=== PATIENT | female | born 1940 ===

== ENCOUNTER 2016-10-31 09:35 | Day surgery (SDC) | payer MEDICARE ==
[2016-10-31] MEDS ORDERED: Midazolam 2 MG/2 ML VIAL ONE (10:31)
[2016-10-31] MEDS ORDERED: Propofol 10 mg/ml Inj (20 ML) ONE (10:31)
[2016-10-31] MEDS ORDERED: Lidocaine Hydrochloride 5 ML INJ ONE (10:33)
[2016-10-31] MEDS ORDERED: Iodixanol 320 MG/ML 200 ML BOTTLE IV ONE (10:41)
[2016-10-31] MEDS ORDERED: Iodixanol 320 MG/ML 100 ML BOTTLE IV ONE (10:41)
[2016-10-31] MEDS ORDERED: Sodium Chloride 0.9% 1,000 ML IV SCH (12:00)
[2016-10-31] MEDS ORDERED: Sodium Chloride 0.9% 1,000 ML IV ONE (12:53)
[2016-10-31 17:03] VITALS: BP 152/74; PULSE 69; RESP 18; TEMP 98; O2SAT 96
--- NOTE | 2016-11-01 16:19 | CARDCATH ---
DATE OF PROCEDURE: 10/31/2016 PROCEDURES: 1. Abdominal aortography. 2. Bilateral lower extremity arterial angiography. CLINICAL INDICATIONS: 1. Intermittent claudication, right more than left. 2. Peripheral arterial disease. 3. Coronary artery disease with history of CABG. 4. Hypertension. 5. Hyperlipidemia. 6. Diabetes. REFERRING PHYSICIAN: Dr. Mccabe. PERFORMING PHYSICIAN: Dr. Gagan Sow. DESCRIPTION OF PROCEDURE: After informed consent, the patient was prepped and draped in the usual sterile fashion. About 2% lidocaine was given in the right groin for local anesthesia. Using micropuncture technique, a 5-inch sheath was introduced into the left femoral artery. Using the usual diagnostic catheter, abdominal aortography and bilateral lower extremity arteriography were performed. The patient tolerated the procedure well. FINDINGS: 1. Abdominal aorta and bilateral renal arteries are patent. 2. Right common iliac artery has a subtotal occlusion. This is calcific disease. Right common femoral artery has mild disease. Right superficial femoral artery is patent. Right popliteal artery and right [id number] arteries are patent. 3. Left common iliac artery has a 60%-70% calcific proximal stenosis. Left external iliac history has a 50% focal lesion. Left common femoral artery has moderate atherosclerotic disease. Left superficial femoral artery is patent. Left popliteal artery has 50%-60% calcific disease. Left [id number] arteries are patent. IMPRESSION: Severe calcific iliac artery disease as discussed above. 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 Gagan Sow MD
== END 2016-10-31 17:00 | disposition home or self-care (01) ==
LOC: C.CATHLAB 09:35
PROVIDERS: ATTEND Internal Medicine Cardiovascular Disease
DX: I70.211 Atherosclerosis of native arteries of extremities with intermittent claudication, right leg (principal); I73.9 Peripheral vascular disease, unspecified; I25.10 Atherosclerotic heart disease of native coronary artery without angina pectoris; E11.9 Type 2 diabetes mellitus without complications; Z95.1 Presence of aortocoronary bypass graft; I10 Essential (primary) hypertension; E78.5 Hyperlipidemia, unspecified
CPT/HCPCS: 36200; 75625; 75716; 82948; 94770; C1766; C1769; J1644; J2250; J3010; J7040; Q9966; Q9967

== ENCOUNTER 2016-11-20 16:53 | Inpatient (IN) | payer MEDICARE ==
[2016-11-20 16:54] VITALS: BMI 35.3
--- NOTE | 2016-11-20 17:35 | C.PDOC ---
History Of Present Illness Patient is a 76 year old female, whose past medical history includes diabetes, hypertension, peripheral artery disease, CABG 3 years ago, presents to the Emergency Department for evaluation of bilateral leg pain. Patient describes the pain as burning sensation, states it feels like "fire inside". Notes that she is having difficulty moving her legs, and is unable to ambulate. Notes that right leg pain is worse then her left. Patient is sent from the PMD office, Dr. Vivas, and will have bilateral iliac stents placement procedure for blocked arteries in b/l lower extremities. Patient also complaints of diffuse abdominal pain consistent with hernia. Otherwise, denies any chest pain, shortness of breath, headache, fever, chills, cough, nausea, vomiting, diarrhea, changes in bowel habits, dysuria, hematuria, frequency, flank pain, sensory changes, or any other associated symptoms at this time. PMD: Dr. Sangeetha Muhammad Block And Case Maker: Dr. Sow Time Seen by Provider: 11/20/16 17:18 Chief Complaint (Nursing): Lower Extremity Problem/Injury History Per: Patient History/Exam Limitations: no limitations Onset/Duration Of Symptoms: Days Current Symptoms Are (Timing): Still Present Severity: Severe Recent travel outside of the [place]: No Additional History Per: Family Past Medical History Reviewed: Historical Data, Nursing Documentation, Vital Signs Vital Signs: Last Vital Signs Temp 97.5 F L 11/27/16 08:00 Pulse 104 H 11/27/16 08:00 Resp 20 11/27/16 08:00 BP 138/74 11/27/16 08:00 Pulse Ox 95 11/27/16 08:00 - Medical History PMH: Gastritis, HTN, Hypercholesterolemia Surgical History: CABG (2013) - [facility] Procedures DILATION OF L COM ILIAC ART WITH INTRALUM DEV, OPEN APPROACH (11/20/16) DILATION OF L EXT ILIAC ART WITH INTRALUM DEV, OPEN APPROACH (11/20/16) DILATION OF R COM ILIAC ART WITH INTRALUM DEV, OPEN APPROACH (11/20/16) EXTIRPATION OF MATTER FROM R FEM ART, OPEN APPROACH (11/20/16) INJECT/INFUSE NEC (07/08/04) REPAIR RIGHT FEMORAL REGION, OPEN APPROACH (11/20/16) SUPPLEMENT R FEM ART WITH SYNTH SUB, OPEN APPROACH (11/20/16) Family History: States: Unknown Family Hx - Social History Hx Alcohol Use: No Hx Substance Use: No Review Of Systems Except As Marked, All Systems Reviewed And Found Negative. Constitutional: Negative for: Fever, Chills Cardiovascular: Negative for: Chest Pain, Palpitations Respiratory: Negative for: Cough, Shortness of Breath Gastrointestinal: Positive for: Abdominal Pain. Negative for: Nausea, Vomiting , Diarrhea, Constipation Genitourinary: Negative for: Dysuria, Frequency, Incontinence, Hematuria, Vaginal Discharge Musculoskeletal: Positive for: Leg Pain (bilateral). Negative for: Neck Pain, Back Pain Skin: Negative for: Rash, Bruising Neurological: Negative for: Weakness, Numbness, Headache, Dizziness Physical Exam - Physical Exam Appears: Non-toxic, No Acute Distress Skin: Normal Color, Warm, Dry Head: Atraumatic, Normacephalic Eye(s): bilateral: Normal Inspection, EOMI Oral Mucosa: Moist Neck: Normal ROM, Supple Chest: Symmetrical, No Deformity, No Tenderness, Other (midsternal chest scar) Cardiovascular: Rhythm Regular, No Murmur Respiratory: Normal Breath Sounds, No Rales, No Rhonchi, No Wheezing Gastrointestinal/Abdominal: Soft, Tenderness (diffuse), No Distention, No Guarding, No Rebound, Hernia Extremity: Normal ROM, Tenderness (bilateral legs R > L), Pedal Edema (+1 pitting edema), Capillary Refill (<2 sec.), No Deformity Extremity: Bilateral: Atraumatic, Normal Color And Temperature, Normal ROM Pulses: Left Dorsalis Pedis: Normal, Right Dorsalis Pedis: Normal Neurological/Psych: Oriented x3, Normal Speech, Normal Motor, Normal Sensation ED Course And Treatment - Laboratory Results Result Diagrams: 11/24/16 08:04 11/25/16 07:04 O2 Sat by Pulse Oximetry: 95 (RA) Pulse Ox Interpretation: Normal Medical Decision Making Medical Decision Making: Impression: 76 y/o female, with history peripheral artery disease presents to the ED for evaluation of bilateral leg pain. Plan: * Blood work * EKG * CXR * Reassess Progress note: Patient is resting comfortably, no signs of acute distress. Disposition Discussed With : Gagan Sow Doctor Will See Patient In The: Hospital - Disposition Disposition: HOSPITALIZED Disposition Time: 17:36 Condition: GUARDED - POA Present On Arrival: None - Clinical Impression Clinical Impression: PAD (peripheral artery disease) - Scribe Statement The provider has reviewed the documentation as recorded by the Miguelina Gramajo All medical record entries made by the Miguelina were at my direction and personally dictated by me. I have reviewed the chart and agree that the record accurately reflects my personal performance of the history, physical exam, medical decision making, and the department course for this patient. I have also personally directed, reviewed, and agree with the discharge instructions and disposition. Decision To Admit - Pt Status Changed To: Hospital Disposition Of: Inpatient - Admit Certification Admit to Inpatient:: After my assessment, the patient will require hospitalization for at least two midnights. This is because of the severity of symptoms shown, intensity of services needed, and/or the medical risk in this patient being treated as an outpatient. - InPatient: Physician Admission Certification: I certify that this patient requires 2 or more midnights of care for the following reason:: patient with pain tp b/l legs , needs proceedure - . Bed Request Type: Regular Patient Diagnosis: PAD (peripheral artery disease)
[2016-11-20 18:01] LABS: BASO # 0.1 K/uL (0.0-0.2); BASO % 1.1 % (0.0-2.0); EOS # 0.2 K/uL (0.0-0.7); EOS % 2.3 % (0.0-4.0); HEMATOCRIT 36.1 % (34.0-47.0); LYMPH # 2.4 K/uL (1.0-4.3); LYMPH % 28.8 % (20.0-40.0); MEAN CELL VOLUME 76.5 fL (81.0-99.0); MEAN CORPUSCULAR HEMOGLOBIN 24.9 pg (27.0-31.0); MEAN CORPUSCULAR HGB CONC 32.6 g/dL (33.0-37.0); MEAN PLATELET VOLUME 7.8 fL (7.2-11.7); MONO # 0.7 K/uL (0.0-0.8); MONO % 8.4 % (0.0-10.0); NRBC % 0.1 % (0.0-2.0); RED CELL DISTRIBUTION WIDTH 21.6 % (11.5-14.5); WHITE BLOOD COUNT 8.3 K/uL (4.8-10.8)
[2016-11-20 18:10] LABS: INR 1.1
[2016-11-20 18:29] LABS: CHLORIDE 102 mmol/L (98-107); POTASSIUM 4.1 mmol/L (3.6-5.2); SODIUM 143 mmol/L (132-148)
[2016-11-20 18:31] LABS: GFR AFRICAN-AMERICAN > 60
[2016-11-20 18:32] LABS: ALB/GLOB RATIO 1.1 (1.0-2.1); ALKALINE PHOSPHATASE 114 U/L (38-126); ALT/SGPT 36 U/L (9-52); AST/SGOT 24 U/L (14-36); BILIRUBIN,TOTAL 0.4 mg/dL (0.2-1.3); BLOOD UREA NITROGEN 13 mg/dL (7-17); CARBON DIOXIDE 26 mmol/L (22-30); GLUCOSE,RANDOM 171 mg/dL (65-105); TOTAL PROTEIN 7.3 g/dL (6.3-8.3)
--- NOTE | 2016-11-20 18:35 | RAD ---
HISTORY: SOB COMPARISON: Chest x-ray performed 03/27/13 TECHNIQUE: Chest, one view. FINDINGS: Examination limited by habitus. LUNGS: No focal consolidation. Please note that chest x-ray has limited sensitivity for the detection of pulmonary masses. PLEURA: No significant pleural effusion identified. No definite pneumothorax . CARDIOVASCULAR: Median sternotomy wires with evidence of CABG. Heart size appears top normal. Dense atherosclerotic calcifications the aortic knob. OSSEOUS STRUCTURES: Osseous demineralization. Degenerative changes of the spine and shoulders. VISUALIZED UPPER ABDOMEN: Unremarkable. OTHER FINDINGS: None. IMPRESSION: Median sternotomy wires with evidence of CABG. Dense atherosclerotic calcifications of the aortic knob.
--- NOTE | 2016-11-20 21:16 | CP.PCM.CON ---
History of Present Illness - History of Present Illness History of Present Illness: CC: Pre Op cardiac risk assessment HPI: 76 F with Hx of CAD s/p CABG x 3 (2013), HTN, DM 2, Hyperlipidemia, Hx of Ex tobacco use, PAD consulted for pre Operative Cardiac risk assessment for CAN SOLDERER endarterectomy and b/l Iliac stentnig unedr general anaesthesia. Patient had a recent ECHO in my office (Normal EF). Patient deneis Chest pain, dyspnea or palpitations Review of Systems - Cardiovascular Cardiovascular: absent: Chest Pain, Dyspnea - Respiratory Respiratory: absent: Dyspnea - Gastrointestinal Gastrointestinal: absent: Abdominal Pain Past Patient History - Past Medical History & Family History Past Medical History?: Yes - Past Social History Smoking Status: Former Smoker Alcohol: None Drugs: Denies Home Situation {Lives}: With Family - CARDIAC Hx Cardiac Disorders: Yes (CAD s/p CABG x 3 (2013)) Hx Hypercholesterolemia: Yes Hx Hypertension: Yes Hx Peripheral Vascular Disease: Yes - NEUROLOGICAL Hx Neurological Disorder: No - ENDOCRINE/METABOLIC Hx Endocrine Disorders: Yes Hx Diabetes Mellitus Type 2: Yes - MUSCULOSKELETAL/RHEUMATOLOGICAL Hx Musculoskeletal Disorders: Yes Hx Unsteady Gait: Yes (USES CANE) - GASTROINTESTINAL Hx Gastritis: Yes - PSYCHIATRIC Hx Substance Use: No - SURGICAL HISTORY Hx Coronary Artery Bypass Graft: Yes (2013) - ANESTHESIA Hx Anesthesia: Yes Meds Allergies/Adverse Reactions: Allergies Allergy/AdvReac Type Severity Reaction Status Date / Time Penicillins Allergy Unknown UNKNOWN Verified 11/20/16 17:06 - Medications Medications: Current Medications Aspirin (Ecotrin) 81 mg PO DAILY [facility] Cilostazol (Pletal) 50 mg PO DAILY [facility] Heparin Sodium (Porcine) (Heparin) 5,000 units SC Q8 [facility] Hydrochlorothiazide (Hydrodiuril) 25 mg PO DAILY [facility] Losartan Potassium (Cozaar) 100 mg PO DAILY [facility] Metoprolol Succinate (Toprol Xl) 25 mg PO DAILY [facility] Pantoprazole Sodium (Protonix Ec Tab) 40 mg PO DAILY [facility] Pregabalin (Lyrica) 25 mg PO BID [facility] Physical Exam - Constitutional Appears: Well - Head Exam Head Exam: ATRAUMATIC - Eye Exam Eye Exam: EOMI, Normal appearance, PERRL - ENT Exam ENT Exam: Mucous Membranes Moist, Normal Exam - Respiratory Exam Respiratory Exam: NORMAL BREATHING PATTERN - Cardiovascular Exam Cardiovascular Exam: REGULAR RHYTHM, +S1, +S2 - GI/Abdominal Exam GI & Abdominal Exam: Normal Bowel Sounds, Soft - Extremities Exam Extremities exam: Positive for: calf tenderness - Neurological Exam Neurological exam: Alert, CN II-XII Intact, Reflexes Normal - Psychiatric Exam Psychiatric exam: Normal Mood Results - Vital Signs Recent Vital Signs: Last Vital Signs Temp 98.2 F 11/20/16 17:08 Pulse 81 11/20/16 17:08 Resp 16 11/20/16 17:08 BP 218/72 H 11/20/16 17:08 Pulse Ox 95 11/20/16 18:31 - Labs Result Diagrams: 11/20/16 17:55 11/20/16 17:55 Labs: Laboratory Results - last 24 hr 11/20/16 11/20/16 11/20/16 17:55 17:55 17:55 WBC 8.3 RBC 4.71 Hgb 11.7 Hct 36.1 MCV 76.5 L D MCH 24.9 L MCHC 32.6 L RDW 21.6 H Plt Count 323 MPV 7.8 Neut % (Auto) 59.4 Lymph % (Auto) 28.8 [place] % (Auto) 8.4 Eos % (Auto) 2.3 Baso % (Auto) 1.1 Neut # 4.9 Lymph # 2.4 [place] # 0.7 Eos # 0.2 Baso # 0.1 PT 12.3 H INR 1.1 APTT 38 H Sodium 143 Potassium 4.1 Chloride 102 Carbon Dioxide 26 Anion Gap 18 BUN 13 Creatinine 0.7 Est GFR ( Amer) > 60 Est GFR (Non-Af Amer) > 60 Random Glucose 171 H Calcium 9.0 Total Bilirubin 0.4 AST 24 ALT 36 Alkaline Phosphatase 114 Total Protein 7.3 Albumin 3.8 Globulin 3.4 Albumin/Globulin Ratio 1.1 Blood Type Blood Type Confirm Antibody Screen 11/20/16 19:06 WBC RBC Hgb Hct MCV MCH MCHC RDW Plt Count MPV Neut % (Auto) Lymph % (Auto) [place] % (Auto) Eos % (Auto) Baso % (Auto) Neut # Lymph # [place] # Eos # Baso # PT INR APTT Sodium Potassium Chloride Carbon Dioxide Anion Gap BUN Creatinine Est GFR ( Amer) Est GFR (Non-Af Amer) Random Glucose Calcium Total Bilirubin AST ALT Alkaline Phosphatase Total Protein Albumin Globulin Albumin/Globulin Ratio Blood Type A POSITIVE Blood Type Confirm A POSITIVE Antibody Screen Negative Assessment & Plan - Assessment and Plan (Free Text) Assessment: 76 F with Hx of CABG x 3 (2013), Normal EF with no recent cardiac events assessed as moderate risk for cardiac events for CAN SOLDERER endarterctomy and b/l Iliac stenting Since benefit out weighs the risk recommend to proceed with the needed procedure. D/W Patient and her daughter at bedside who agreed to undergo the surgery Thank you
--- NOTE | 2016-11-21 06:44 | CP.PCM.CON ---
History of Present Illness - History of Present Illness History of Present Illness: Surgery: Dr. Taylor CC: B/L LE pain HPI: 76F w. pmh of HTN, DM 2, Hyperlipidemia, and PVD was sent to ED by PMD for B/L LE pain. Pt states that the pain has been present for about a yr in both legs R>L. The pain is mostly in the thighs. Pain is described as burning. It is intermittent but exacerbated w. walking. She states that the pain does not wake her from her sleep. Prior imaging shows stenosis of B/L iliac arteries and R BETA TESTER. Currently pt denies FATIMA/blurred vision, no CP/paplitations, no SOB/cough, no N/V/D, no F/C, no weakness/fatigue. PMH: see above PSH: CABG Meds: MAR reviewed ALL: PCN SOcial: No tobacco/ETOH/drugs Fhx: non-contributory Review of Systems - Review of Systems All systems: reviewed and no additional remarkable complaints except (HPI) Past Patient History - Past Medical History & Family History Past Medical History?: Yes - Past Social History Smoking Status: Never Smoked - CARDIAC Hx Cardiac Disorders: Yes (CAD s/p CABG x 3 (2013)) Hx Angina: No Hx Atrial Fibrillation: No Hx Cardia Arrhythmia: No Hx Circulatory Problems: No Hx Congestive Heart Failure: No Hx Heart Attack: No Hx Heart Murmur: No Hx Heart Transplant: No Hx Hypercholesterolemia: Yes Hx Hypertension: Yes Hx Hypotension: No Hx Internal Defibrillator: No Hx Mitral Valve Prolapse: No Hx Pacemaker: No Hx Peripheral Edema: No Hx Peripheral Vascular Disease: Yes - PULMONARY Hx Respiratory Disorders: No - NEUROLOGICAL Hx Neurological Disorder: No - HEENT Hx HEENT Problems: No - RENAL Hx Chronic Kidney Disease: No - ENDOCRINE/METABOLIC Hx Endocrine Disorders: Yes Hx Adrenal Cancer: No Hx Diabetes Insipidus: No Hx Diabetes Mellitus Type 1: No Hx Diabetes Mellitus Type 2: Yes Hx Hyperthyroidism: No Hx Hypothyroidism: No Hx Systemic Lupus Erythematosus: No - HEMATOLOGICAL/ONCOLOGICAL Hx Blood Disorders: No - INTEGUMENTARY Hx Dermatological Problems: No - MUSCULOSKELETAL/RHEUMATOLOGICAL Hx Falls: No - GASTROINTESTINAL Hx Gastrointestinal Disorders: Yes Hx Bowel Surgery: No Hx Clostridium Difficile: No Hx Colitis: No Hx Colostomy: No Hx Constipation: No Hx Crohn's Disease: No Hx Diarrhea: No Hx Diverticulitis: No Hx Esophageal Varices: No Hx Fatty Liver Disease: No Hx Gall Bladder Disease: No Hx Gastritis: Yes Hx Gastroesophageal Reflux: No Hx Hemorrhoids: No Hx Ileostomy: No Hx Irritable Bowel: No Hx Liver Failure: No Hx Nausea: No Hx Pancreatitis: No HX Swallowing Problems: No Hx Ulcer: No Hx Vomiting: No - GENITOURINARY/GYNECOLOGICAL Hx Genitourinary Disorders: No - PSYCHIATRIC Hx Substance Use: No - SURGICAL HISTORY Hx Surgeries: Yes Hx Abdominal Aortic Aneurysm Repair: No Hx Amputation: No Hx Angiogram: No Hx Angioplasty: No Hx Appendectomy: No Hx Arteriovenous Shunt: No Hx Arthroscopy: No Hx Bile Duct Stent: No Hx Breast Biopsy: No Hx Cataract Extraction: No Hx Cardiac Catheterization: No Hx Carotid Endarterectomy: No Hx Section: No Hx Cholecystectomy: No Hx Coronary Artery Bypass Graft: Yes (2013) Hx Coronary Stent: No Hx Dilation and Curettage: No Hx Eye Surgery: No Hx Femoral-Popliteal Bypass Graft: No Hx Gastric Bypass Surgery: No Hx Herniorrhaphy: No Hx Hysterectomy: No Hx Joint Replacement: No Hx Kidney Transplant: No Hx Liver Transplant: No Hx Mastectomy: No Hx Musculoskeletal Surgery: No Hx Open Heart Surgery: No Hx Open Reduction Internal Fixation: No Hx Orthopedic Surgery: No Hx Parathyroidectomy: No Hx Penile Implant: No Hx Pulmonary Surgery: No Hx Splenectomy: No Hx Thyroidectomy: No Hx Tonsillectomy: No Hx Tubal Ligation: No Hx Valve Replacement: No Hx Vascular Surgery: No Hx Vascular Access Device: No - ANESTHESIA Hx Anesthesia: Yes Hx Anesthesia Reactions: No Hx Malignant Hyperthermia: No Has any member of the family had a problem w/ anesthesia?: No Meds Allergies/Adverse Reactions: Allergies Allergy/AdvReac Type Severity Reaction Status Date / Time Penicillins Allergy Unknown UNKNOWN Verified 11/20/16 17:06 - Medications Medications: Current Medications Aspirin (Ecotrin) 81 mg PO DAILY [facility] Cilostazol (Pletal) 50 mg PO DAILY [facility] Heparin Sodium (Porcine) (Heparin) 5,000 units SC Q8 [facility] Last Admin: 11/21/16 05:28 Dose: Not Given Hydrochlorothiazide (Hydrodiuril) 25 mg PO DAILY [facility] Losartan Potassium (Cozaar) 100 mg PO DAILY [facility] Metoprolol Succinate (Toprol Xl) 25 mg PO DAILY [facility] Pantoprazole Sodium (Protonix Ec Tab) 40 mg PO DAILY [facility] Pregabalin (Lyrica) 25 mg PO BID [facility] Physical Exam - Constitutional Appears: Non-toxic, No Acute Distress - Head Exam Head Exam: ATRAUMATIC, NORMOCEPHALIC - Eye Exam Eye Exam: EOMI. absent: Scleral icterus Pupil Exam: PERRL - ENT Exam ENT Exam: Mucous Membranes Moist, Normal External Ear Exam - Neck Exam Neck exam: Positive for: Full Rom - Respiratory Exam Respiratory Exam: NORMAL BREATHING PATTERN. absent: Accessory Muscle Use, Respiratory Distress - Cardiovascular Exam Cardiovascular Exam: RRR - GI/Abdominal Exam GI & Abdominal Exam: Soft. absent: Tenderness - Extremities Exam Extremities exam: Negative for: calf tenderness, pedal edema - Back Exam Back exam: absent: CVA tenderness (L), CVA tenderness (R) - Neurological Exam Neurological exam: Alert, Oriented x3 - Psychiatric Exam Psychiatric exam: Normal Affect, Normal Mood - Skin Skin Exam: Normal Color, Warm Results - Vital Signs Recent Vital Signs: Last Vital Signs Temp 98.3 F 11/21/16 00:00 Pulse 74 11/21/16 00:00 Resp 20 11/21/16 03:14 BP 143/55 L 11/21/16 00:00 Pulse Ox 95 11/21/16 00:00 - Labs Result Diagrams: 11/20/16 17:55 11/20/16 17:55 Labs: Laboratory Results - last 24 hr 11/20/16 11/20/16 11/20/16 17:55 17:55 17:55 WBC 8.3 RBC 4.71 Hgb 11.7 Hct 36.1 MCV 76.5 L D MCH 24.9 L MCHC 32.6 L RDW 21.6 H Plt Count 323 MPV 7.8 Neut % (Auto) 59.4 Lymph % (Auto) 28.8 [place] % (Auto) 8.4 Eos % (Auto) 2.3 Baso % (Auto) 1.1 Neut # 4.9 Lymph # 2.4 [place] # 0.7 Eos # 0.2 Baso # 0.1 PT 12.3 H INR 1.1 APTT 38 H Sodium 143 Potassium 4.1 Chloride 102 Carbon Dioxide 26 Anion Gap 18 BUN 13 Creatinine 0.7 Est GFR ( Amer) > 60 Est GFR (Non-Af Amer) > 60 Random Glucose 171 H Calcium 9.0 Total Bilirubin 0.4 AST 24 ALT 36 Alkaline Phosphatase 114 Total Protein 7.3 Albumin 3.8 Globulin 3.4 Albumin/Globulin Ratio 1.1 Blood Type Blood Type Confirm Antibody Screen 11/20/16 19:06 WBC RBC Hgb Hct MCV MCH MCHC RDW Plt Count MPV Neut % (Auto) Lymph % (Auto) [place] % (Auto) Eos % (Auto) Baso % (Auto) Neut # Lymph # [place] # Eos # Baso # PT INR APTT Sodium Potassium Chloride Carbon Dioxide Anion Gap BUN Creatinine Est GFR ( Amer) Est GFR (Non-Af Amer) Random Glucose Calcium Total Bilirubin AST ALT Alkaline Phosphatase Total Protein Albumin Globulin Albumin/Globulin Ratio Blood Type A POSITIVE Blood Type Confirm A POSITIVE Antibody Screen Negative Assessment & Plan - Assessment and Plan (Free Text) Assessment: 76F w. B/L iliac stenosis and BETA TESTER stenosis -OR for b/l iliac stents and BETA TESTER endarterectomy -Type and screen, type and cross -NPO -will d/w attending Josie PGY3
--- NOTE | 2016-11-21 08:08 | CARD ---
APPROVED REPORT EKG Measurement Heart [id number] <Conclusion> Normal sinus rhythm Inferior infarct, age undetermined Abnormal ECG
[2016-11-21] MEDS ORDERED: ceFAZolin IV 1 gm in Dextrose 0 GM/0 ML BAG IVPB ONE (09:29)
[2016-11-21] MEDS ORDERED: HEPARIN-NS 5,000 UNITS/500 ML 10,000 UNIT/1,000 ML BAG IV ONE (09:30)
[2016-11-21] MEDS ORDERED: ceFAZolin IV 2 gm in Dextrose 0 GM/0 ML BAG IVPB ONE (09:40)
[2016-11-21] MEDS: Metoprolol Succinate 25 mg XL Tab PO SCH (11:04)
[2016-11-21] MEDS: Pantoprazole 40 mg EC Tab PO SCH (11:04)
[2016-11-21] MEDS: Cilostazol 50 mg Tab UD PO SCH (11:04)
[2016-11-21] MEDS ORDERED: Iodixanol 320 MG/ML 200 ML BOTTLE IV ONE ×3 (11:11→14:44)
[2016-11-21] MEDS ORDERED: Lactated Ringer's 1,000 ML IV ONE ×5 (12:10→19:04)
[2016-11-21] MEDS ORDERED: Vancomycin 1 gm/D5W 200 ml 1 GM/200 ML BAG IVPB ONE (12:12)
[2016-11-21] MEDS ORDERED: Midazolam 2 MG/2 ML VIAL ONE (12:17)
[2016-11-21] MEDS ORDERED: Propofol 10 mg/ml Inj (20 ML) ONE (12:17)
[2016-11-21 15:31] LABS: HEMATOCRIT 31.1 % (34.0-47.0)
[2016-11-21] MEDS ORDERED: Sodium Chloride 0.9% 1,000 ML IV ONE (16:20)
[2016-11-21] MEDS ORDERED: HEPARIN-NS 5,000 UNITS/500 ML 5,000 UNIT/500 ML BAG IV ONE ×2 (16:23→17:13)
[2016-11-21 16:51] LABS: DRAW SITE RRA
[2016-11-21] MEDS ORDERED: HYDROmorphone 0.5 mg/0.5 ml ISec IVP PRN (16:52)
[2016-11-21] MEDS ORDERED: (Novolin R) Insulin Human Regular 100 units/ml vial IV ONE ×2 (17:14→17:30)
[2016-11-21] MEDS ORDERED: Calcium Chloride 1000 mg/10 ml Syringe IV STA (18:05)
[2016-11-21] MEDS ORDERED: Thrombin Topical 20,000 Intl Units Spray Kit TOP ONE (18:15)
[2016-11-21] MEDS ORDERED: Nitroglycerin 2% Ointment Foilpak UD TOP PRN (19:19)
[2016-11-21] MEDS ORDERED: Metoprolol 1 mg/ml Inj IVP ONE (19:28)
--- NOTE | 2016-11-21 19:31 | PCM.SURG1 ---
Surgeon's Initial Post Op Note - Surgeon's Notes Surgeon: Dr. Taylor Expert Witness: Dr. López PGY-4, Dr. Dominguez PGY-2, Kasey Zavala OMS-3 Type of Anesthesia: General Endo Pre-Operative Diagnosis: PAD Operative Findings: see operative report Post-Operative Diagnosis: same Operation Performed: Open exposure right femoral artery. Bilateral common iliac artery stents VBX. Left external iliac stent. Right common femoral endarterectomy w/ patch. primary femoral hernia repair Specimen/Specimens Removed: Proximal right common femoral plaque. Distal right common femoral plaque Estimated Blood Loss: EBL {In ML}: 1,000 Blood Products Given: N/A Drains Used: No Drains Post-Op Condition: Good Date of Surgery/Procedure: 11/21/16 Time of Surgery/Procedure: 12:00
[2016-11-21] MEDS ORDERED: (Novolin R) Insulin Human Regular 100 units/ml vial SC ONE (19:53)
[2016-11-21] MEDS ORDERED: Nitroglycerin 50mg in D5W 50 MG/250 ML BOTTLE IV SCH (20:15)
[2016-11-21] MEDS: Lactated Ringer's 1,000 ML IV SCH (21:18)
[2016-11-21 21:59] LABS: MEAN CELL VOLUME 77.9 fL (81.0-99.0); MEAN CORPUSCULAR HEMOGLOBIN 25.5 pg (27.0-31.0); MEAN CORPUSCULAR HGB CONC 32.7 g/dL (33.0-37.0); RED CELL DISTRIBUTION WIDTH 20.3 % (11.5-14.5)
[2016-11-21 22:01] LABS: WHITE BLOOD COUNT 15.8 K/uL (4.8-10.8)
--- NOTE | 2016-11-21 22:57 | CP.CCUPN ---
CCU Subjective - Physician Review Events Since Last Encounter (Free Text): The Patient was seen and examined at the bedside, Medical records reviewed, and management issues were discussed and formulated. All clinical/lab/hemodynamic/radiographic data were reviewed 76 Y/O former tobacco use F with PMHx of Gastritis, HTN, Hypercholesterolemia and peripheral vascular disease Who presented to the ER with Lower Extremity Problem/Injury Admitted today to ICU following Open exposure right femoral artery, Bilateral common iliac artery stents VBX. Left external iliac stent. Right common femoral endarterectomy. Also underwent primary femoral hernia repair Procedure done under General Anesthesia and was uneventful Estimated Blood Loss: EBL {In ML}: 1,000 Patient was successfully extubated, admitted to ICU hemodynamically stable, denies any chest pain or SOB CCU Objective - Vital Signs / Intake & Output Vital Signs (Last 4 hours): Vital Signs Temp Pulse Resp BP Pulse Ox 11/21/16 22:19 167/66 H 11/21/16 22:00 69 17 100 11/21/16 21:30 69 15 99 11/21/16 21:00 97.7 F 70 18 143/66 95 11/21/16 20:48 69 21 161/64 H 93 L 11/21/16 20:45 97.7 F 70 18 162/62 H 93 L 11/21/16 20:39 75 95 11/21/16 20:30 75 22 160/65 H 94 L 11/21/16 20:15 73 19 160/67 H 95 11/21/16 20:00 72 17 151/70 H 96 11/21/16 19:45 88 26 H 175/76 H 95 11/21/16 19:30 82 26 H 158/72 H 98 11/21/16 19:14 98.2 F 82 11 L 180/80 H 99 Intake and Output (Last 8hrs): Intake & Output 11/21/16 11/21/16 11/21/16 06:59 14:59 22:59 Intake Total 0 922 Output Total 1635 Balance 0 -713 Intake: Intake, IV Amount 272 Right Hand 272 Oral 0 Blood Product 650 Output: Urine 1635 Urethral ([place]) 250 Other: # Voids Urine, Voided 1 1 # Bowel Movements 0 0 - Physical Exam Physical Exam Limitations: Positive for: Clinical Condition Head: Positive for: Atraumatic, Normocephalic. Negative for: Tenderness, Contusion Pupils: Positive for: PERRL Extroacular Muscles: Positive for: EOMI Conjunctiva: Positive for: Normal. Negative for: Injected, Icteric Mouth: Positive for: Moist Mucous Membranes Pharnyx: Positive for: Normal Nose (Internal): Positive for: Normal Inspection Neck: Positive for: Normal Range of Motion, Trachea Midline. Negative for: Meningeal Signs, MIDLINE TENDERNESS, Paraspinal Tenderness, JVD, Lymphadenopathy , Bruit, Other Respiratory/Chest: Positive for: Clear to Auscultation, Good Air Exchange. Negative for: Respiratory Distress, Accessory Muscle Use Cardiovascular: Positive for: Regular Rate and Rhythm, Normal S1, S2. Negative for: Murmurs Abdomen: Negative for: Tenderness, Distention Upper Extremity: Positive for: Normal Inspection. Negative for: Cyanosis, Edema Lower Extremity: Negative for: Edema, CALF TENDERNESS Neurological: Positive for: GCS=15, CN II-XII Intact - Medications Active Medications: Active Medications Generic Name Dose Route Start Last Admin Trade Name Freq PRN Reason Stop Dose Admin Aspirin 81 mg 11/21/16 10:00 11/21/16 11:03 Ecotrin PO 81 mg DAILY KANU Administration Cilostazol 50 mg 11/21/16 10:00 11/21/16 11:04 Pletal PO 50 mg DAILY KANU Administration Hydrochlorothiazide 25 mg 11/21/16 10:00 11/21/16 11:03 Hydrodiuril PO 25 mg DAILY KANU Administration Hydromorphone HCl 0.5 mg 11/21/16 19:16 Dilaudid IVP Q3H PRN Pain, moderate (4-7) Lactated Ringer's 1,000 mls @ 130 mls/hr 11/21/16 19:30 11/21/16 21:18 Lactated Ringer's IV 130 mls/hr .[id number] KANU Administration Nitroglycerin/Dextrose 50 mg in 250 mls @ 4.5 mls/hr 11/21/16 20:15 11/21/16 20:45 Nitroglycerin 50 Mg/250 Ml D5w IV 20 mcg/min .Q24H KANU 6 mls/hr Protocol Administration 15 MCG/MIN Losartan Potassium 100 mg 11/21/16 10:00 11/21/16 11:04 Cozaar PO 100 mg DAILY KANU Administration Metoprolol Succinate 25 mg 11/21/16 10:00 11/21/16 11:04 Toprol Xl PO 25 mg DAILY KANU Administration Ondansetron HCl 4 mg 11/21/16 19:44 11/21/16 19:45 Zofran Inj IVP 4 mg Q6H PRN Administration Nausea/Vomiting Pantoprazole Sodium 40 mg 11/21/16 10:00 11/21/16 11:04 Protonix Ec Tab PO 40 mg DAILY KANU Administration Pregabalin 25 mg 11/21/16 10:00 11/21/16 11:03 Lyrica PO 25 mg BID KANU Administration - Patient Studies Lab Studies: Lab Studies 11/21/16 11/21/16 11/21/16 Range/Units 21:54 21:19 19:47 WBC 15.8 H D (4.8-10.8) K/uL RBC 4.49 (3.80-5.20) Mil/uL Hgb 11.5 D (11.0-16.0) g/dL Hct 35.0 (34.0-47.0) % MCV 77.9 L (81.0-99.0) fL MCH 25.5 L (27.0-31.0) pg MCHC 32.7 L (33.0-37.0) g/dL RDW 20.3 H (11.5-14.5) % Plt Count 217 D (130-400) K/uL MPV 8.0 (7.2-11.7) fL Puncture Site pCO2 (35-45) mm/Hg pO2 (80-100) mm/Hg HCO3 (21-28) mmol/L ABG pH (7.35-7.45) ABG Total CO2 (22-28) mmol/L ABG O2 Saturation (95-98) % ABG Base Excess (-2.0-3.0) mmol/L Jam Test ABG Potassium (3.6-5.2) mmol/L A-a O2 Difference mm/Hg Respiratory Index Sodium (132-148) mmol/l Chloride (98-107) mmol/L Glucose (65-105) mg/dl Lactate (0.7-2.1) mmol/L FiO2 % POC Glucose (mg/dL) 326 H 316 H (65-110) mg/dL Arterial Blood Potassium (3.6-5.2) mmol/L Blood Type Blood Type Confirm Antibody Screen 11/21/16 11/21/16 11/21/16 Range/Units 18:09 16:40 15:26 WBC (4.8-10.8) K/uL RBC (3.80-5.20) Mil/uL Hgb 9.5 L 10.1 L (11.0-16.0) g/dL Hct 29.0 L 31.1 L (34.0-47.0) % MCV (81.0-99.0) fL MCH (27.0-31.0) pg MCHC (33.0-37.0) g/dL RDW (11.5-14.5) % Plt Count (130-400) K/uL MPV (7.2-11.7) fL Puncture Site Rra pCO2 32 L (35-45) mm/Hg pO2 374 H (80-100) mm/Hg HCO3 26.9 (21-28) mmol/L ABG pH 7.50 H (7.35-7.45) ABG Total CO2 26.0 (22-28) mmol/L ABG O2 Saturation 99.0 H (95-98) % ABG Base Excess 2.4 (-2.0-3.0) mmol/L Jam Test Na ABG Potassium 4.0 (3.6-5.2) mmol/L A-a O2 Difference 299.0 mm/Hg Respiratory Index 0.8 Sodium 138.0 (132-148) mmol/l Chloride 112.0 H (98-107) mmol/L Glucose 301 H (65-105) mg/dl Lactate 2.1 (0.7-2.1) mmol/L FiO2 100.0 % POC Glucose (mg/dL) (65-110) mg/dL Arterial Blood Potassium 4.0 (3.6-5.2) mmol/L Blood Type Blood Type Confirm Antibody Screen 11/21/16 11/20/16 Range/Units 11:45 19:06 WBC (4.8-10.8) K/uL RBC (3.80-5.20) Mil/uL Hgb (11.0-16.0) g/dL Hct (34.0-47.0) % MCV (81.0-99.0) fL MCH (27.0-31.0) pg MCHC (33.0-37.0) g/dL RDW (11.5-14.5) % Plt Count (130-400) K/uL MPV (7.2-11.7) fL Puncture Site pCO2 (35-45) mm/Hg pO2 (80-100) mm/Hg HCO3 (21-28) mmol/L ABG pH (7.35-7.45) ABG Total CO2 (22-28) mmol/L ABG O2 Saturation (95-98) % ABG Base Excess (-2.0-3.0) mmol/L Jam Test ABG Potassium (3.6-5.2) mmol/L A-a O2 Difference mm/Hg Respiratory Index Sodium (132-148) mmol/l Chloride (98-107) mmol/L Glucose (65-105) mg/dl Lactate (0.7-2.1) mmol/L FiO2 % POC Glucose (mg/dL) 253 H (65-110) mg/dL Arterial Blood Potassium (3.6-5.2) mmol/L Blood Type A POSITIVE Blood Type Confirm A POSITIVE Antibody Screen Negative Laboratory Results - last 24 hr 11/20/16 11/21/16 11/21/16 19:06 11:45 15:26 WBC RBC Hgb 10.1 L Hct 31.1 L MCV MCH MCHC RDW Plt Count MPV Puncture Site pCO2 pO2 HCO3 ABG pH ABG Total CO2 ABG O2 Saturation ABG Base Excess Jam Test ABG Potassium A-a O2 Difference Respiratory Index Sodium Chloride Glucose Lactate FiO2 POC Glucose (mg/dL) 253 H Arterial Blood Potassium Blood Type A POSITIVE Blood Type Confirm A POSITIVE Antibody Screen Negative 11/21/16 11/21/16 11/21/16 16:40 18:09 19:47 WBC RBC Hgb 9.5 L Hct 29.0 L MCV MCH MCHC RDW Plt Count MPV Puncture Site Rra pCO2 32 L pO2 374 H HCO3 26.9 ABG pH 7.50 H ABG Total CO2 26.0 ABG O2 Saturation 99.0 H ABG Base Excess 2.4 Jam Test Na ABG Potassium 4.0 A-a O2 Difference 299.0 Respiratory Index 0.8 Sodium 138.0 Chloride 112.0 H Glucose 301 H Lactate 2.1 FiO2 100.0 POC Glucose (mg/dL) 316 H Arterial Blood Potassium 4.0 Blood Type Blood Type Confirm Antibody Screen 11/21/16 11/21/16 21:19 21:54 WBC 15.8 H D RBC 4.49 Hgb 11.5 D Hct 35.0 MCV 77.9 L MCH 25.5 L MCHC 32.7 L RDW 20.3 H Plt Count 217 D MPV 8.0 Puncture Site pCO2 pO2 HCO3 ABG pH ABG Total CO2 ABG O2 Saturation ABG Base Excess Jam Test ABG Potassium A-a O2 Difference Respiratory Index Sodium Chloride Glucose Lactate FiO2 POC Glucose (mg/dL) 326 H Arterial Blood Potassium Blood Type Blood Type Confirm Antibody Screen Review of Systems - Cardiovascular Cardiovascular: absent: As Per HPI, Acrocyanosis, Chest Pain, Chest Pain at Rest , Chest Pain with Activity, Claudication, Diaphoresis, Dyspnea, Dyspnea on Exertion, Edema, Irregular Heart Rhythm, Pain Radiating to Arm/Neck/Jaw, Leg Edema, Leg Ulcers, Lightheadedness, Orthopnea, Palpitations, Paroxysmal Nocturnal Dyspnea, Pedal Edema, Radiating Pain, Rapid Heart Rate, Slow Heart Rate, Syncope, Other, UNREMARKABLE - Respiratory Respiratory: absent: As Per HPI, Cough, Dyspnea, Hemoptysis, Dyspnea on Exertion , Wheezing, Snoring, Stridor, Pain on Inspiration, Chest Congestion, Excessive Mucous Production, Change in Mucous Color, Pain with Coughing, Other, UNREMARKABLE Critical Care Progress Note - Nutrition Nutrition: Nutrition Category Date Time Status Consistent Carbohydrate [DIET] Diets 11/21/16 Dinner Active Assessment/Plan (1) Essential (primary) hypertension Current Visit: Yes Status: Acute (2) HLD (hyperlipidemia) Current Visit: Yes Status: Acute (3) Diabetes mellitus Current Visit: Yes Status: Acute (4) PAD (peripheral artery disease) Current Visit: Yes Status: Acute - Assessment and Plan (Free Text) Assessment: Admit to SICU for hemodynamic monitoring, SBP goal 130-140s STAT LABS/LYTES/CBC, EKG Pulse check Q 1H Monitor Respiratory status for Respiratory depression PRN Naloxone for RR<8 IV Hydration Perioperative Antibiotics as per surgery Pain control Clear liquid diet, Advance as tolerate Monitor urine output PRN Ondansetron Wound care Tight glycemic control, RISS with Coverage Incentive spirometry GI/DVT PPX with SCDs, START LMWH IN AM IF NO BLEED
--- NOTE | 2016-11-21 23:31 | CP.PCM.HP ---
History of Present Illness - History of Present Illness History of Present Illness: Chief complaint: Leg pain History present illness: 76-year-old female with history of CAD, status post a coronary artery bypass grafting, hypertension, hyperlipidemia, history of smoking, peripheral vascular disease admitted to the hospital because of the ongoing pain in the legs. Patient also has a significant atherosclerotic disease of the abdominal aorta. Patient was having increasing pain especially on the right leg. No ulcers noted. Patient also has a history of diabetes. Poor appetite noted. She is also complaining of bilateral leg pain, feeling like a burning sensation in the legs. She also having some difficulty in moving her legs. Unable to walk. Right is more than the left. She also has a some frequency of urine, flank pain, occasionally noted. She does not have any chest pain or shortness of breath Past medical history: CAD, CABG 3, hypertension, hyperlipidemia, smoking in the past the PVD Surgical history: CABG 3 in the past. Allergy: Penicillin Personal history: History a smoker in the past, nonalcoholic. Family history noncontributory Review of system: No headache, bilateral leg pain, no chest pain, denies any abdominal symptoms. No urinary symptoms Vital signs reviewed No neck vein distention noted Chest good air entry bilaterally, no wheezing or rales noted CVS regular heart sound, no murmur noted Abdomen soft, nontender. Extremities no pedal edema [employer] alert awake oriented 3, no functional neurological deficit Postoperative day 1 today Patient underwent extensive surgical intervention, appendectomy and also bilateral stent placement in the common femoral artery. Patient tolerated the procedure Labs reviewed EKG normal Assessment and recommendation: 76-year-old female with history of diabetes hypertension CAD, CABG 3, peripheral vascular disease. Now admitted with bilateral peripheral vascular disease involving the iliac artery. Status post a surgical intervention. Postoperatively being managed. Close monitoring. Antiplatelets heparin. We'll follow the patient Present on Admission - Present on Admission Any Indicators Present on Admission: No History of DVT/PE: No History of Uncontrolled Diabetes: No Urinary Catheter: No Decubitus Ulcer Present: No Past Patient History - Past Medical History & Family History Past Medical History?: Yes - Past Social History Smoking Status: Never Smoked - CARDIAC Hx Cardiac Disorders: Yes (CAD s/p CABG x 3 (2013)) Hx Angina: No Hx Atrial Fibrillation: No Hx Cardia Arrhythmia: No Hx Circulatory Problems: No Hx Congestive Heart Failure: No Hx Heart Attack: No Hx Heart Murmur: No Hx Heart Transplant: No Hx Hypercholesterolemia: Yes Hx Hypertension: Yes Hx Hypotension: No Hx Internal Defibrillator: No Hx Mitral Valve Prolapse: No Hx Pacemaker: No Hx Peripheral Edema: No Hx Peripheral Vascular Disease: Yes - PULMONARY Hx Respiratory Disorders: No - NEUROLOGICAL Hx Neurological Disorder: No - HEENT Hx HEENT Problems: No - RENAL Hx Chronic Kidney Disease: No - ENDOCRINE/METABOLIC Hx Endocrine Disorders: Yes Hx Adrenal Cancer: No Hx Diabetes Insipidus: No Hx Diabetes Mellitus Type 1: No Hx Diabetes Mellitus Type 2: Yes Hx Hyperthyroidism: No Hx Hypothyroidism: No Hx Systemic Lupus Erythematosus: No - HEMATOLOGICAL/ONCOLOGICAL Hx Blood Disorders: No - INTEGUMENTARY Hx Dermatological Problems: No - MUSCULOSKELETAL/RHEUMATOLOGICAL Hx Falls: No - GASTROINTESTINAL Hx Gastrointestinal Disorders: Yes Hx Bowel Surgery: No Hx Clostridium Difficile: No Hx Colitis: No Hx Colostomy: No Hx Constipation: No Hx Crohn's Disease: No Hx Diarrhea: No Hx Diverticulitis: No Hx Esophageal Varices: No Hx Fatty Liver Disease: No Hx Gall Bladder Disease: No Hx Gastritis: Yes Hx Gastroesophageal Reflux: No Hx Hemorrhoids: No Hx Ileostomy: No Hx Irritable Bowel: No Hx Liver Failure: No Hx Nausea: No Hx Pancreatitis: No HX Swallowing Problems: No Hx Ulcer: No Hx Vomiting: No - GENITOURINARY/GYNECOLOGICAL Hx Genitourinary Disorders: No - PSYCHIATRIC Hx Substance Use: No - SURGICAL HISTORY Hx Surgeries: Yes Hx Abdominal Aortic Aneurysm Repair: No Hx Amputation: No Hx Angiogram: No Hx Angioplasty: No Hx Appendectomy: No Hx Arteriovenous Shunt: No Hx Arthroscopy: No Hx Bile Duct Stent: No Hx Breast Biopsy: No Hx Cataract Extraction: No Hx Cardiac Catheterization: No Hx Carotid Endarterectomy: No Hx Section: No Hx Cholecystectomy: No Hx Coronary Artery Bypass Graft: Yes (2013) Hx Coronary Stent: No Hx Dilation and Curettage: No Hx Eye Surgery: No Hx Femoral-Popliteal Bypass Graft: No Hx Gastric Bypass Surgery: No Hx Herniorrhaphy: No Hx Hysterectomy: No Hx Joint Replacement: No Hx Kidney Transplant: No Hx Liver Transplant: No Hx Mastectomy: No Hx Musculoskeletal Surgery: No Hx Open Heart Surgery: No Hx Open Reduction Internal Fixation: No Hx Orthopedic Surgery: No Hx Parathyroidectomy: No Hx Penile Implant: No Hx Pulmonary Surgery: No Hx Splenectomy: No Hx Thyroidectomy: No Hx Tonsillectomy: No Hx Tubal Ligation: No Hx Valve Replacement: No Hx Vascular Surgery: No Hx Vascular Access Device: No - ANESTHESIA Hx Anesthesia: Yes Hx Anesthesia Reactions: No Hx Malignant Hyperthermia: No Has any member of the family had a problem w/ anesthesia?: No Meds Allergies/Adverse Reactions: Allergies Allergy/AdvReac Type Severity Reaction Status Date / Time Penicillins Allergy Unknown UNKNOWN Verified 11/20/16 17:06 Results - Vital Signs Recent Vital Signs: Last Vital Signs Temp 97.7 F 11/21/16 21:00 Pulse 71 11/21/16 23:00 Resp 15 11/21/16 23:00 BP 166/63 H 11/21/16 23:00 Pulse Ox 100 11/21/16 23:00 - Labs Result Diagrams: 11/22/16 06:27 11/22/16 06:27 Labs: Laboratory Results - last 24 hr 11/20/16 11/21/16 11/21/16 19:06 11:45 15:26 WBC RBC Hgb 10.1 L Hct 31.1 L MCV MCH MCHC RDW Plt Count MPV Puncture Site pCO2 pO2 HCO3 ABG pH ABG Total CO2 ABG O2 Saturation ABG Base Excess Jam Test ABG Potassium A-a O2 Difference Respiratory Index Sodium Chloride Glucose Lactate FiO2 POC Glucose (mg/dL) 253 H Arterial Blood Potassium Blood Type A POSITIVE Blood Type Confirm A POSITIVE Antibody Screen Negative 11/21/16 11/21/16 11/21/16 16:40 18:09 19:47 WBC RBC Hgb 9.5 L Hct 29.0 L MCV MCH MCHC RDW Plt Count MPV Puncture Site Rra pCO2 32 L pO2 374 H HCO3 26.9 ABG pH 7.50 H ABG Total CO2 26.0 ABG O2 Saturation 99.0 H ABG Base Excess 2.4 Jam Test Na ABG Potassium 4.0 A-a O2 Difference 299.0 Respiratory Index 0.8 Sodium 138.0 Chloride 112.0 H Glucose 301 H Lactate 2.1 FiO2 100.0 POC Glucose (mg/dL) 316 H Arterial Blood Potassium 4.0 Blood Type Blood Type Confirm Antibody Screen 11/21/16 11/21/16 21:19 21:54 WBC 15.8 H D RBC 4.49 Hgb 11.5 D Hct 35.0 MCV 77.9 L MCH 25.5 L MCHC 32.7 L RDW 20.3 H Plt Count 217 D MPV 8.0 Puncture Site pCO2 pO2 HCO3 ABG pH ABG Total CO2 ABG O2 Saturation ABG Base Excess Jam Test ABG Potassium A-a O2 Difference Respiratory Index Sodium Chloride Glucose Lactate FiO2 POC Glucose (mg/dL) 326 H Arterial Blood Potassium Blood Type Blood Type Confirm Antibody Screen
[2016-11-22] MEDS: Lactated Ringer's 1,000 ML IV SCH ×3 (05:20→19:32)
--- NOTE | 2016-11-22 06:16 | OP ---
PROCEDURE DATE: 11/21/2016 PREOPERATIVE DIAGNOSIS: Peripheral vascular disease,bilateral common iliac and right common femoral stenoses. PROCEDURE CARRIED OUT: Aortofemoral angiogram with two punctures, and then the patient had an open exposure of the right common femoral artery and placement of bilateral iliac artery and common iliac artery stents, VBX 7 mm, the right was 79 and the left was 59. Also deployment of a 7 mm Tigris stent in left external iliac artery. A right common femoral endarterectomy with patch angioplasty and repair of a right femoral hernia. SURGEON: Dr. Taylor. ASSISTANTS: Dr. Peng and Dr. Dominguez. ANESTHESIOLOGISTS: Cyn Jara CRNA and Dr. Pathak. FINDINGS: Initially, the angiogram showed that the patient had bilateral patent renal arteries. The patient had atherosclerotic changes throughout the aorta. The both common iliac arteries are stenotic. The right frankly occluded and left over 70% stenosis. In addition, the left external iliac artery had multiple areas of stenosis and the right external iliac artery, proximal common femoral artery had diffuse areas of stenosis near occlusion, a cauliflower coral-type lesion. Initially, we were able to cross the right common iliac lesion with difficulty with an 0.035 Glidewire, where we were unable to advance any wires or sheaths or catheters or balloons over this. We then changed this to an 0.018 system, inflated the right common iliac artery with a small balloon until we had a channel and then we were able to deploy after taking the appropriate precautions and measurements and ballooning, first with 6-mm balloon, we were able to deploy two 7-mm stents in the common iliac arteries. After this has been done, I was satisfied with results. We then deployed a left external iliac artery stent for two 60% stenoses in the external iliac artery. The left common femoral artery did have some atherosclerosis, but basically showed free flow. On the right side, there was a high-grade stenosis of over 80% in the proximal portion of common femoral artery, and in the terminal portion just at the origin of profunda and SFA, there was also a very tight stenosis. After this had been done, we already given heparin prior to deploying any stents. We then deployed Perclose device in the left groin. We then continued the dissection in the right groin and we had already dissected out the right common femoral artery. We then carried out the endarterectomy, and after we had clean endpoints, we placed a patch here which was satisfactory and a good flow into the foot. We then repaired a troublesome right femoral hernia which consistently came into our field and obscured the field, so we had to repair this without mesh at this setting. Blood loss for the procedure was close to 1000 mL. The patient received 2 units of blood during the procedure. So the operation carried out is aortofemoral angiogram with two punctures. Open exposure of right common femoral artery, bilateral common iliac artery VBX stents, left external iliac artery stent, and right common femoral endarterectomy with patch angioplasty and repair of right femoral hernia. Elver Taylor Jr., MD cc: MD Carter Bowser MD
[2016-11-22 06:38] LABS: BASO % 0.3 % (0.0-2.0); HEMATOCRIT 32.3 % (34.0-47.0); LYMPH # 1.1 K/uL (1.0-4.3); LYMPH % 9.3 % (20.0-40.0); MEAN CELL VOLUME 78.3 fL (81.0-99.0); MEAN CORPUSCULAR HEMOGLOBIN 25.2 pg (27.0-31.0); MEAN CORPUSCULAR HGB CONC 32.2 g/dL (33.0-37.0); MEAN PLATELET VOLUME 8.4 fL (7.2-11.7); MONO # 0.8 K/uL (0.0-0.8); MONO % 6.8 % (0.0-10.0); PLATELET COUNT 202 K/uL (130-400); RED CELL DISTRIBUTION WIDTH 20.4 % (11.5-14.5); WHITE BLOOD COUNT 11.4 K/uL (4.8-10.8)
[2016-11-22 06:42] LABS: CHLORIDE 102 mmol/L (98-107)
[2016-11-22 06:43] LABS: POTASSIUM 4.4 mmol/L (3.6-5.2); SODIUM 135 mmol/L (132-148)
[2016-11-22 06:45] LABS: GFR AFRICAN-AMERICAN > 60
[2016-11-22 06:46] LABS: BLOOD UREA NITROGEN 11 mg/dL (7-17); CALCIUM 8.5 mg/dl (8.6-10.4); CARBON DIOXIDE 24 mmol/L (22-30)
[2016-11-22 07:08] LABS: GLUCOSE,RANDOM 320 mg/dL (65-105)
[2016-11-22] MEDS ORDERED: (Novolog) Insulin Aspart, Recombinant 100 u/ml 10 ml vial SC SCH (07:30)
[2016-11-22] MEDS: (Novolin R) Insulin Human Regular 100 units/ml vial ONE ×2 (07:46→07:56)
[2016-11-22 08:42] LABS: NEUTROPHIL 83 % (50-75); TOTAL CELLS COUNTED 100
[2016-11-22] MEDS: Metoprolol Succinate 25 mg XL Tab PO SCH (09:04)
[2016-11-22] MEDS: Pantoprazole 40 mg EC Tab PO SCH (09:04)
[2016-11-22] MEDS: Cilostazol 50 mg Tab UD PO SCH (09:08)
--- NOTE | 2016-11-22 10:33 | CP.CCUPN ---
CCU Objective - Vital Signs / Intake & Output Vital Signs (Last 4 hours): Vital Signs Pulse Resp BP Pulse Ox 11/22/16 09:06 76 24 130/49 L 96 11/22/16 09:00 69 22 98 11/22/16 08:56 81 24 136/47 L 97 11/22/16 08:00 75 20 100 11/22/16 07:56 78 24 128/38 L 100 11/22/16 07:00 79 22 100 11/22/16 06:56 78 20 134/52 L 99 Intake and Output (Last 8hrs): Intake & Output 11/21/16 11/22/16 11/22/16 22:59 06:59 14:59 Intake Total 922 1182 Output Total 1635 650 150 Balance -713 532 -150 Intake: Intake, IV Amount 272 1182 Right Hand 272 1182 Blood Product 650 Output: Urine 1635 650 150 Urethral ([place]) 250 650 150 Other: # Bowel Movements 0 0 - Physical Exam Head: Positive for: Atraumatic, Normocephalic. Negative for: Tenderness, Contusion Pupils: Positive for: PERRL Extroacular Muscles: Positive for: EOMI Conjunctiva: Positive for: Normal. Negative for: Injected, Icteric Mouth: Positive for: Moist Mucous Membranes Pharnyx: Positive for: Normal Nose (Internal): Positive for: Normal Inspection Neck: Positive for: Normal Range of Motion, Trachea Midline. Negative for: Meningeal Signs, MIDLINE TENDERNESS, Paraspinal Tenderness, JVD, Lymphadenopathy , Bruit, Other Respiratory/Chest: Positive for: Clear to Auscultation, Good Air Exchange. Negative for: Respiratory Distress, Accessory Muscle Use Cardiovascular: Positive for: Regular Rate and Rhythm, Normal S1, S2. Negative for: Murmurs Abdomen: Negative for: Tenderness, Distention Upper Extremity: Positive for: Normal Inspection. Negative for: Cyanosis, Edema Lower Extremity: Negative for: Edema, CALF TENDERNESS Neurological: Positive for: GCS=15, CN II-XII Intact - Medications Active Medications: Active Medications Generic Name Dose Route Start Last Admin Trade Name Freq PRN Reason Stop Dose Admin Aspirin 81 mg 11/21/16 10:00 11/22/16 09:04 Ecotrin PO 81 mg DAILY [facility] Administration Cilostazol 50 mg 11/21/16 10:00 08/09/17 09:08 Pletal PO 50 mg DAILY [facility] Administration Hydrochlorothiazide 25 mg 11/21/16 10:00 11/22/16 09:11 Hydrodiuril PO 25 mg DAILY [facility] Administration Hydromorphone HCl 0.5 mg 11/21/16 19:16 Dilaudid IVP Q3H PRN Pain, moderate (4-7) Lactated Ringer's 1,000 mls @ 130 mls/hr 11/21/16 19:30 11/22/16 05:20 Lactated Ringer's IV 130 mls/hr .Q7H42M [facility] Administration Nitroglycerin/Dextrose 50 mg in 250 mls @ 4.5 mls/hr 11/21/16 20:15 11/21/16 20:45 Nitroglycerin 50 Mg/250 Ml D5w IV 20 mcg/min .Q24H [facility]U 6 mls/hr Protocol Administration 15 MCG/MIN Insulin Aspart 0 unit 11/22/16 11:30 Novolog SC ACHS [facility] Protocol Insulin Glargine 10 unit 11/22/16 22:00 Lantus SC HS [facility] Losartan Potassium 100 mg 11/21/16 10:00 11/22/16 09:03 Cozaar PO 100 mg DAILY [facility] Administration Metoprolol Succinate 25 mg 11/21/16 10:00 11/22/16 09:04 Toprol Xl PO 25 mg DAILY [facility] Administration Ondansetron HCl 4 mg 11/21/16 19:44 11/21/16 19:45 Zofran Inj IVP 4 mg Q6H PRN Administration Nausea/Vomiting Pantoprazole Sodium 40 mg 11/21/16 10:00 11/22/16 09:04 Protonix Ec Tab PO 40 mg DAILY [facility] Administration Pregabalin 25 mg 11/21/16 10:00 11/22/16 09:12 Lyrica PO 25 mg BID [facility] Administration - Patient Studies Lab Studies: Lab Studies 11/22/16 11/22/16 11/22/16 Range/Units 07:18 06:27 06:27 WBC 11.4 H (4.8-10.8) K/uL RBC 4.12 (3.80-5.20) Mil/uL Hgb 10.4 L (11.0-16.0) g/dL Hct 32.3 L (34.0-47.0) % MCV 78.3 L (81.0-99.0) fL MCH 25.2 L (27.0-31.0) pg MCHC 32.2 L (33.0-37.0) g/dL RDW 20.4 H (11.5-14.5) % Plt Count 202 (130-400) K/uL MPV 8.4 (7.2-11.7) fL Neut % (Auto) 83.6 H (50.0-75.0) % Lymph % (Auto) 9.3 L (20.0-40.0) % [place] % (Auto) 6.8 (0.0-10.0) % Eos % (Auto) 0.0 (0.0-4.0) % Baso % (Auto) 0.3 (0.0-2.0) % Neut # 9.5 H (1.8-7.0) K/uL Lymph # 1.1 (1.0-4.3) K/uL [place] # 0.8 (0.0-0.8) K/uL Eos # 0.0 (0.0-0.7) K/uL Baso # 0.0 (0.0-0.2) K/uL Neutrophils % (Manual) 83 H (50-75) % Band Neutrophils % 1 (0-2) % Lymphocytes % (Manual) 7 L (20-40) % Monocytes % (Manual) 9 (0-10) % Platelet Estimate Normal (NORMAL) Hypochromasia (manual) Slight Poikilocytosis (manual Slight Anisocytosis (manual) Slight Ovalocytes Slight Serena Cells Slight Puncture Site pCO2 (35-45) mm/Hg pO2 (80-100) mm/Hg HCO3 (21-28) mmol/L ABG pH (7.35-7.45) ABG Total CO2 (22-28) mmol/L ABG O2 Saturation (95-98) % ABG Base Excess (-2.0-3.0) mmol/L Jam Test ABG Potassium (3.6-5.2) mmol/L A-a O2 Difference mm/Hg Respiratory Index Sodium 135 (132-148) mmol/l Chloride 102 (98-107) mmol/L Glucose (65-105) mg/dl Lactate (0.7-2.1) mmol/L FiO2 % Potassium 4.4 (3.6-5.2) mmol/L Carbon Dioxide 24 (22-30) mmol/L Anion Gap 14 (10-20) BUN 11 (7-17) mg/dL Creatinine 0.6 L (0.7-1.2) MG/DL Est GFR ( Amer) > 60 Est GFR (Non-Af Amer) > 60 POC Glucose (mg/dL) 355 H (65-110) mg/dL Random Glucose 320 H (65-105) mg/dL Calcium 8.5 L (8.6-10.4) mg/dl Arterial Blood Potassium (3.6-5.2) mmol/L Blood Type Blood Type Confirm Antibody Screen 11/21/16 11/21/16 11/21/16 Range/Units 21:54 21:19 19:47 WBC 15.8 H D (4.8-10.8) K/uL RBC 4.49 (3.80-5.20) Mil/uL Hgb 11.5 D (11.0-16.0) g/dL Hct 35.0 (34.0-47.0) % MCV 77.9 L (81.0-99.0) fL MCH 25.5 L (27.0-31.0) pg MCHC 32.7 L (33.0-37.0) g/dL RDW 20.3 H (11.5-14.5) % Plt Count 217 D (130-400) K/uL MPV 8.0 (7.2-11.7) fL Neut % (Auto) (50.0-75.0) % Lymph % (Auto) (20.0-40.0) % [place] % (Auto) (0.0-10.0) % Eos % (Auto) (0.0-4.0) % Baso % (Auto) (0.0-2.0) % Neut # (1.8-7.0) K/uL Lymph # (1.0-4.3) K/uL [place] # (0.0-0.8) K/uL Eos # (0.0-0.7) K/uL Baso # (0.0-0.2) K/uL Neutrophils % (Manual) (50-75) % Band Neutrophils % (0-2) % Lymphocytes % (Manual) (20-40) % Monocytes % (Manual) (0-10) % Platelet Estimate (NORMAL) Hypochromasia (manual) Poikilocytosis (manual Anisocytosis (manual) Ovalocytes Avenal Cells Puncture Site pCO2 (35-45) mm/Hg pO2 (80-100) mm/Hg HCO3 (21-28) mmol/L ABG pH (7.35-7.45) ABG Total CO2 (22-28) mmol/L ABG O2 Saturation (95-98) % ABG Base Excess (-2.0-3.0) mmol/L Jam Test ABG Potassium (3.6-5.2) mmol/L A-a O2 Difference mm/Hg Respiratory Index Sodium (132-148) mmol/l Chloride (98-107) mmol/L Glucose (65-105) mg/dl Lactate (0.7-2.1) mmol/L FiO2 % Potassium (3.6-5.2) mmol/L Carbon Dioxide (22-30) mmol/L Anion Gap (10-20) BUN (7-17) mg/dL Creatinine (0.7-1.2) MG/DL Est GFR ( Amer) Est GFR (Non-Af Amer) POC Glucose (mg/dL) 326 H 316 H (65-110) mg/dL Random Glucose (65-105) mg/dL Calcium (8.6-10.4) mg/dl Arterial Blood Potassium (3.6-5.2) mmol/L Blood Type Blood Type Confirm Antibody Screen 11/21/16 11/21/16 11/21/16 Range/Units 18:09 16:40 15:26 WBC (4.8-10.8) K/uL RBC (3.80-5.20) Mil/uL Hgb 9.5 L 10.1 L (11.0-16.0) g/dL Hct 29.0 L 31.1 L (34.0-47.0) % MCV (81.0-99.0) fL MCH (27.0-31.0) pg MCHC (33.0-37.0) g/dL RDW (11.5-14.5) % Plt Count (130-400) K/uL MPV (7.2-11.7) fL Neut % (Auto) (50.0-75.0) % Lymph % (Auto) (20.0-40.0) % [place] % (Auto) (0.0-10.0) % Eos % (Auto) (0.0-4.0) % Baso % (Auto) (0.0-2.0) % Neut # (1.8-7.0) K/uL Lymph # (1.0-4.3) K/uL [place] # (0.0-0.8) K/uL Eos # (0.0-0.7) K/uL Baso # (0.0-0.2) K/uL Neutrophils % (Manual) (50-75) % Band Neutrophils % (0-2) % Lymphocytes % (Manual) (20-40) % Monocytes % (Manual) (0-10) % Platelet Estimate (NORMAL) Hypochromasia (manual) Poikilocytosis (manual Anisocytosis (manual) Ovalocytes Serena Cells Puncture Site Rra pCO2 32 L (35-45) mm/Hg pO2 374 H (80-100) mm/Hg HCO3 26.9 (21-28) mmol/L ABG pH 7.50 H (7.35-7.45) ABG Total CO2 26.0 (22-28) mmol/L ABG O2 Saturation 99.0 H (95-98) % ABG Base Excess 2.4 (-2.0-3.0) mmol/L Jam Test Na ABG Potassium 4.0 (3.6-5.2) mmol/L A-a O2 Difference 299.0 mm/Hg Respiratory Index 0.8 Sodium 138.0 (132-148) mmol/l Chloride 112.0 H (98-107) mmol/L Glucose 301 H (65-105) mg/dl Lactate 2.1 (0.7-2.1) mmol/L FiO2 100.0 % Potassium (3.6-5.2) mmol/L Carbon Dioxide (22-30) mmol/L Anion Gap (10-20) BUN (7-17) mg/dL Creatinine (0.7-1.2) MG/DL Est GFR ( Amer) Est GFR (Non-Af Amer) POC Glucose (mg/dL) (65-110) mg/dL Random Glucose (65-105) mg/dL Calcium (8.6-10.4) mg/dl Arterial Blood Potassium 4.0 (3.6-5.2) mmol/L Blood Type Blood Type Confirm Antibody Screen 11/21/16 11/20/16 Range/Units 11:45 19:06 WBC (4.8-10.8) K/uL RBC (3.80-5.20) Mil/uL Hgb (11.0-16.0) g/dL Hct (34.0-47.0) % MCV (81.0-99.0) fL MCH (27.0-31.0) pg MCHC (33.0-37.0) g/dL RDW (11.5-14.5) % Plt Count (130-400) K/uL MPV (7.2-11.7) fL Neut % (Auto) (50.0-75.0) % Lymph % (Auto) (20.0-40.0) % [place] % (Auto) (0.0-10.0) % Eos % (Auto) (0.0-4.0) % Baso % (Auto) (0.0-2.0) % Neut # (1.8-7.0) K/uL Lymph # (1.0-4.3) K/uL [place] # (0.0-0.8) K/uL Eos # (0.0-0.7) K/uL Baso # (0.0-0.2) K/uL Neutrophils % (Manual) (50-75) % Band Neutrophils % (0-2) % Lymphocytes % (Manual) (20-40) % Monocytes % (Manual) (0-10) % Platelet Estimate (NORMAL) Hypochromasia (manual) Poikilocytosis (manual Anisocytosis (manual) Ovalocytes Serena Cells Puncture Site pCO2 (35-45) mm/Hg pO2 (80-100) mm/Hg HCO3 (21-28) mmol/L ABG pH (7.35-7.45) ABG Total CO2 (22-28) mmol/L ABG O2 Saturation (95-98) % ABG Base Excess (-2.0-3.0) mmol/L Jam Test ABG Potassium (3.6-5.2) mmol/L A-a O2 Difference mm/Hg Respiratory Index Sodium (132-148) mmol/l Chloride (98-107) mmol/L Glucose (65-105) mg/dl Lactate (0.7-2.1) mmol/L FiO2 % Potassium (3.6-5.2) mmol/L Carbon Dioxide (22-30) mmol/L Anion Gap (10-20) BUN (7-17) mg/dL Creatinine (0.7-1.2) MG/DL Est GFR ( Amer) Est GFR (Non-Af Amer) POC Glucose (mg/dL) 253 H (65-110) mg/dL Random Glucose (65-105) mg/dL Calcium (8.6-10.4) mg/dl Arterial Blood Potassium (3.6-5.2) mmol/L Blood Type A POSITIVE Blood Type Confirm A POSITIVE Antibody Screen Negative Laboratory Results - last 24 hr 11/20/16 11/21/16 11/21/16 19:06 11:45 15:26 WBC RBC Hgb 10.1 L Hct 31.1 L MCV MCH MCHC RDW Plt Count MPV Neut % (Auto) Lymph % (Auto) [place] % (Auto) Eos % (Auto) Baso % (Auto) Neut # Lymph # [place] # Eos # Baso # Neutrophils % (Manual) Band Neutrophils % Lymphocytes % (Manual) Monocytes % (Manual) Platelet Estimate Hypochromasia (manual) Poikilocytosis (manual Anisocytosis (manual) Ovalocytes Avenal Cells Puncture Site pCO2 pO2 HCO3 ABG pH ABG Total CO2 ABG O2 Saturation ABG Base Excess Jam Test ABG Potassium A-a O2 Difference Respiratory Index Sodium Chloride Glucose Lactate FiO2 Potassium Carbon Dioxide Anion Gap BUN Creatinine Est GFR ( Amer) Est GFR (Non-Af Amer) POC Glucose (mg/dL) 253 H Random Glucose Calcium Arterial Blood Potassium Blood Type A POSITIVE Blood Type Confirm A POSITIVE Antibody Screen Negative 11/21/16 11/21/16 11/21/16 16:40 18:09 19:47 WBC RBC Hgb 9.5 L Hct 29.0 L MCV MCH MCHC RDW Plt Count MPV Neut % (Auto) Lymph % (Auto) [place] % (Auto) Eos % (Auto) Baso % (Auto) Neut # Lymph # [place] # Eos # Baso # Neutrophils % (Manual) Band Neutrophils % Lymphocytes % (Manual) Monocytes % (Manual) Platelet Estimate Hypochromasia (manual) Poikilocytosis (manual Anisocytosis (manual) Ovalocytes Serena Cells Puncture Site Rra pCO2 32 L pO2 374 H HCO3 26.9 ABG pH 7.50 H ABG Total CO2 26.0 ABG O2 Saturation 99.0 H ABG Base Excess 2.4 Jam Test Na ABG Potassium 4.0 A-a O2 Difference 299.0 Respiratory Index 0.8 Sodium 138.0 Chloride 112.0 H Glucose 301 H Lactate 2.1 FiO2 100.0 Potassium Carbon Dioxide Anion Gap BUN Creatinine Est GFR ( Amer) Est GFR (Non-Af Amer) POC Glucose (mg/dL) 316 H Random Glucose Calcium Arterial Blood Potassium 4.0 Blood Type Blood Type Confirm Antibody Screen 11/21/16 11/21/16 11/22/16 21:19 21:54 06:27 WBC 15.8 H D 11.4 H RBC 4.49 4.12 Hgb 11.5 D 10.4 L Hct 35.0 32.3 L MCV 77.9 L 78.3 L MCH 25.5 L 25.2 L MCHC 32.7 L 32.2 L RDW 20.3 H 20.4 H Plt Count 217 D 202 MPV 8.0 8.4 Neut % (Auto) 83.6 H Lymph % (Auto) 9.3 L [place] % (Auto) 6.8 Eos % (Auto) 0.0 Baso % (Auto) 0.3 Neut # 9.5 H Lymph # 1.1 [place] # 0.8 Eos # 0.0 Baso # 0.0 Neutrophils % (Manual) 83 H Band Neutrophils % 1 Lymphocytes % (Manual) 7 L Monocytes % (Manual) 9 Platelet Estimate Normal Hypochromasia (manual) Slight Poikilocytosis (manual Slight Anisocytosis (manual) Slight Ovalocytes Slight Avenal Cells Slight Puncture Site pCO2 pO2 HCO3 ABG pH ABG Total CO2 ABG O2 Saturation ABG Base Excess Jam Test ABG Potassium A-a O2 Difference Respiratory Index Sodium Chloride Glucose Lactate FiO2 Potassium Carbon Dioxide Anion Gap BUN Creatinine Est GFR ( Amer) Est GFR (Non-Af Amer) POC Glucose (mg/dL) 326 H Random Glucose Calcium Arterial Blood Potassium Blood Type Blood Type Confirm Antibody Screen 11/22/16 11/22/16 06:27 07:18 WBC RBC Hgb Hct MCV MCH MCHC RDW Plt Count MPV Neut % (Auto) Lymph % (Auto) [place] % (Auto) Eos % (Auto) Baso % (Auto) Neut # Lymph # [place] # Eos # Baso # Neutrophils % (Manual) Band Neutrophils % Lymphocytes % (Manual) Monocytes % (Manual) Platelet Estimate Hypochromasia (manual) Poikilocytosis (manual Anisocytosis (manual) Ovalocytes Serena Cells Puncture Site pCO2 pO2 HCO3 ABG pH ABG Total CO2 ABG O2 Saturation ABG Base Excess Jam Test ABG Potassium A-a O2 Difference Respiratory Index Sodium 135 Chloride 102 Glucose Lactate FiO2 Potassium 4.4 Carbon Dioxide 24 Anion Gap 14 BUN 11 Creatinine 0.6 L Est GFR ( Amer) > 60 Est GFR (Non-Af Amer) > 60 POC Glucose (mg/dL) 355 H Random Glucose 320 H Calcium 8.5 L Arterial Blood Potassium Blood Type Blood Type Confirm Antibody Screen Fingerstick Blood Sugar Results: 326 Critical Care Progress Note - Nutrition Nutrition: Nutrition Category Date Time Status Consistent Carbohydrate [DIET] Diets 11/21/16 Dinner Active
[2016-11-22] MEDS: HYDROmorphone 0.5 mg/0.5 ml ISec IVP PRN (11:20)
[2016-11-22] MEDS: (Novolog) Insulin Aspart, Recombinant 100 u/ml 10 ml vial SC SCH ×3 (11:43→21:27)
--- NOTE | 2016-11-22 12:37 | CP.PCM.PN ---
Subjective - Date & Time of Evaluation Date of Evaluation: 11/22/16 Time of Evaluation: 07:30 - Subjective Subjective: Patient seen and examined at bedside this AM. Patient has no complaints. As per nursing staff, no acute events over night. 2.3L urine output over 24 hrs. Palpable DP/PT pulses in right foot. +Doppler on left DP/PT foot. No sign of hematoma along left groin. Right groin surgical incision is c/d/i. Hgb stable at 10.4. Objective - Vital Signs/Intake and Output Vital Signs (last 24 hours): Temp Pulse Resp BP Pulse Ox 97.8 F 76 24 130/49 L 96 11/22/16 04:00 11/22/16 09:06 11/22/16 09:06 11/22/16 09:06 11/22/16 09:06 Intake and Output: 11/22/16 11/22/16 06:59 18:59 Intake Total 1454 Output Total 1275 150 Balance 179 -150 - Medications Medications: Current Medications Aspirin (Ecotrin) 81 mg PO DAILY [facility] Last Admin: 11/22/16 09:04 Dose: 81 mg Cilostazol (Pletal) 50 mg PO DAILY [facility] Last Admin: 11/22/16 09:08 Dose: 50 mg Hydrochlorothiazide (Hydrodiuril) 25 mg PO DAILY [facility] Last Admin: 11/22/16 09:11 Dose: 25 mg Hydromorphone HCl (Dilaudid) 0.5 mg IVP Q3H PRN PRN Reason: Pain, moderate (4-7) Last Admin: 11/22/16 11:20 Dose: 0.5 mg Lactated Ringer's (Lactated Ringer's) 1,000 mls @ 130 mls/hr IV .Q7H42M [facility] Last Admin: 11/22/16 05:20 Dose: 130 mls/hr Nitroglycerin/Dextrose (Nitroglycerin 50 Mg/250 Ml D5w) 50 mg in 250 mls @ 4.5 mls/hr IV .Q24H [facility]; 15 MCG/MIN PRN Reason: Protocol Last Admin: 11/21/16 20:45 Dose: 20 mcg/min, 6 mls/hr Insulin Aspart (Novolog) 0 unit SC ACHS [facility] PRN Reason: Protocol Last Admin: 11/22/16 11:43 Dose: 6 unit Insulin Glargine (Lantus) 10 unit SC HS [facility] Losartan Potassium (Cozaar) 100 mg PO DAILY [facility] Last Admin: 11/22/16 09:03 Dose: 100 mg Metoprolol Succinate (Toprol Xl) 25 mg PO DAILY [facility] Last Admin: 11/22/16 09:04 Dose: 25 mg Ondansetron HCl (Zofran Inj) 4 mg IVP Q6H PRN PRN Reason: Nausea/Vomiting Last Admin: 11/21/16 19:45 Dose: 4 mg Pantoprazole Sodium (Protonix Ec Tab) 40 mg PO DAILY [facility] Last Admin: 11/22/16 09:04 Dose: 40 mg Pregabalin (Lyrica) 25 mg PO BID [facility] Last Admin: 11/22/16 09:12 Dose: 25 mg - Labs Labs: 11/22/16 06:27 11/22/16 06:27 PT 12.3 SECONDS (9.7-12.2) H 11/20/16 17:55 INR 1.1 11/20/16 17:55 APTT 38 SECONDS (21-34) H 11/20/16 17:55 - Constitutional Appears: No Acute Distress - Head Exam Head Exam: NORMOCEPHALIC - Eye Exam Eye Exam: Normal appearance - ENT Exam ENT Exam: Mucous Membranes Moist - Respiratory Exam Respiratory Exam: NORMAL BREATHING PATTERN - Cardiovascular Exam Cardiovascular Exam: +S1, +S2 - GI/Abdominal Exam GI & Abdominal Exam: Soft, Tenderness Additional comments: Tenderness along right groin incision, appropriate s/p surgery Assessment and Plan - Assessment and Plan (Free Text) Assessment: 76F s/p B/l common iliac stents, Left external iliac stent, Right femoral endarterectomy w/ patch, Open right femoral hernia repair POD1 -D/c contreras -D/c arterial line -Incentive spirometer -OOB to chair -PT eval -Monitor groin sites -Monitor DP/PT pulses -Further recs per Dr. Claudia Dominguez PGY2
--- NOTE | 2016-11-22 14:59 | CP.PCM.PN ---
Subjective - Date & Time of Evaluation Date of Evaluation: 11/21/16 Time of Evaluation: 20:30 - Subjective Subjective: Patient s/p Post Op In ICU hemodynamically stable Objective - Vital Signs/Intake and Output Vital Signs (last 24 hours): Temp Pulse Resp BP Pulse Ox 97.5 F L 78 15 117/50 L 98 11/22/16 07:30 11/22/16 13:00 11/22/16 13:00 11/22/16 12:56 11/22/16 13:00 Intake and Output: 11/22/16 11/22/16 06:59 18:59 Intake Total 1454 Output Total 1275 150 Balance 179 -150 - Medications Medications: Current Medications Aspirin (Ecotrin) 81 mg PO DAILY [facility] Last Admin: 11/22/16 09:04 Dose: 81 mg Cilostazol (Pletal) 50 mg PO DAILY [facility] [place] Last Admin: 11/22/16 09:08 Dose: 50 mg Hydrochlorothiazide (Hydrodiuril) 25 mg PO DAILY [facility] [place] Last Admin: 11/22/16 09:11 Dose: 25 mg Hydromorphone HCl (Dilaudid) 0.5 mg IVP Q3H PRN PRN Reason: Pain, moderate (4-7) Last Admin: 11/22/16 11:20 Dose: 0.5 mg Lactated Ringer's (Lactated Ringer's) 1,000 mls @ 130 mls/hr IV .Q7H42M [facility] [place] Last Admin: 11/22/16 05:20 Dose: 130 mls/hr Nitroglycerin/Dextrose (Nitroglycerin 50 Mg/250 Ml D5w) 50 mg in 250 mls @ 4.5 mls/hr IV .Q24H [facility]; 15 MCG/MIN PRN Reason: Protocol Last Admin: 11/21/16 20:45 Dose: 20 mcg/min, 6 mls/hr Insulin Aspart (Novolog) 0 unit SC ACHS [facility] [place] PRN Reason: Protocol Last Admin: 11/22/16 11:43 Dose: 6 unit Insulin Glargine (Lantus) 10 unit SC HS [facility] Losartan Potassium (Cozaar) 100 mg PO DAILY [facility] [place] Last Admin: 11/22/16 09:03 Dose: 100 mg Metoprolol Succinate (Toprol Xl) 25 mg PO DAILY [facility] [place] Last Admin: 11/22/16 09:04 Dose: 25 mg Ondansetron HCl (Zofran Inj) 4 mg IVP Q6H PRN PRN Reason: Nausea/Vomiting Last Admin: 11/21/16 19:45 Dose: 4 mg Pantoprazole Sodium (Protonix Ec Tab) 40 mg PO DAILY [facility] [place] Last Admin: 11/22/16 09:04 Dose: 40 mg Pregabalin (Lyrica) 25 mg PO BID [facility] [place] Last Admin: 11/22/16 09:12 Dose: 25 mg - Labs Labs: 11/22/16 06:27 11/22/16 06:27 PT 12.3 SECONDS (9.7-12.2) H 11/20/16 17:55 INR 1.1 11/20/16 17:55 APTT 38 SECONDS (21-34) H 11/20/16 17:55
--- NOTE | 2016-11-22 15:55 | RAD ---
PROCEDURE: INTRAOPERATIVE FLUOROSCOPY: HISTORY: P.V.D COMPARISON: CTA abdomen pelvis lower extremities 10/02/2016. TECHNIQUE: Intraoperative fluoroscopy was provided to the referring physician to assist in vascular procedure in the region of the iliac arterial system bilaterally. FINDINGS: Angiography was performed followed by and blue sentinel bilateral regionally common iliac arteries and bilateral common iliac artery wall stent placement. Please see op report for further detail. IMPRESSION: Intra under fluoroscopy as discussed above for angiographic and vascular surgical procedure. Please see operative report for greater detail. Total radiation dose 1898 mGy
--- NOTE | 2016-11-22 22:32 | CP.PCM.PN ---
Subjective - Date & Time of Evaluation Date of Evaluation: 11/22/16 Time of Evaluation: 08:50 - Subjective Subjective: Patient seen and evaluated Denies chest pain and dyspnea Hemodynamically stable Objective - Vital Signs/Intake and Output Vital Signs (last 24 hours): Temp Pulse Resp BP Pulse Ox 98.3 F 84 27 H 129/30 L 100 11/22/16 20:00 11/22/16 20:00 11/22/16 20:00 11/22/16 19:56 11/22/16 20:00 Intake and Output: 11/22/16 11/23/16 18:59 06:59 Intake Total 370 Output Total 350 400 Balance -350 -30 - Medications Medications: Current Medications Aspirin (Ecotrin) 81 mg PO DAILY [facility] Last Admin: 11/22/16 09:04 Dose: 81 mg Cilostazol (Pletal) 50 mg PO DAILY [facility] Last Admin: 11/22/16 09:08 Dose: 50 mg Hydrochlorothiazide (Hydrodiuril) 25 mg PO DAILY [facility] Last Admin: 11/22/16 09:11 Dose: 25 mg Hydromorphone HCl (Dilaudid) 0.5 mg IVP Q3H PRN PRN Reason: Pain, moderate (4-7) Last Admin: 11/22/16 11:20 Dose: 0.5 mg Lactated Ringer's (Lactated Ringer's) 1,000 mls @ 130 mls/hr IV .Q7H42M [facility] Last Admin: 11/22/16 19:32 Dose: Not Given Nitroglycerin/Dextrose (Nitroglycerin 50 Mg/250 Ml D5w) 50 mg in 250 mls @ 4.5 mls/hr IV .Q24H KANU; 15 MCG/MIN PRN Reason: Protocol Last Admin: 11/21/16 20:45 Dose: 20 mcg/min, 6 mls/hr Insulin Aspart (Novolog) 0 unit SC ACHS [facility] PRN Reason: Protocol Last Admin: 11/22/16 21:27 Dose: Not Given Insulin Glargine (Lantus) 10 unit SC HS KANU Losartan Potassium (Cozaar) 100 mg PO DAILY [facility] Last Admin: 11/22/16 09:03 Dose: 100 mg Metoprolol Succinate (Toprol Xl) 25 mg PO DAILY [facility] Last Admin: 11/22/16 09:04 Dose: 25 mg Ondansetron HCl (Zofran Inj) 4 mg IVP Q6H PRN PRN Reason: Nausea/Vomiting Last Admin: 11/21/16 19:45 Dose: 4 mg Pantoprazole Sodium (Protonix Ec Tab) 40 mg PO DAILY [facility] Last Admin: 11/22/16 09:04 Dose: 40 mg Pregabalin (Lyrica) 25 mg PO BID [facility] Last Admin: 11/22/16 18:00 Dose: Not Given - Labs Labs: 11/22/16 06:27 11/22/16 06:27 PT 12.3 SECONDS (9.7-12.2) H 11/20/16 17:55 INR 1.1 11/20/16 17:55 APTT 38 SECONDS (21-34) H 11/20/16 17:55
--- NOTE | 2016-11-22 23:55 | CP.PCM.PN ---
Subjective - Date & Time of Evaluation Date of Evaluation: 11/22/16 Time of Evaluation: 23:55 - Subjective Subjective: Patient has several a palpable peripheral artery. Pulses are palpable. Pain is still noted. But she is feeling better. No chest pain no shortness of breath. Urine output is better Patient's labs reviewed Vital signs stable Assessment and a condition: 73-year-old female with history of hypertension diabetes, hypercholesteremia, CAD, PVD, status post a CABG 3. Now admitted for. PVD, atherectomy, and stent placement in the common femoral artery bilaterally. Postoperative day 2. Doing well. We'll continue to monitor. We'll follow the patient Objective - Vital Signs/Intake and Output Vital Signs (last 24 hours): Temp Pulse Resp BP Pulse Ox 98.3 F 84 27 H 129/30 L 100 11/22/16 20:00 11/22/16 20:00 11/22/16 20:00 11/22/16 19:56 11/22/16 20:00 Intake and Output: 11/22/16 11/23/16 18:59 06:59 Intake Total 370 Output Total 350 400 Balance -350 -30 - Medications Medications: Current Medications Aspirin (Ecotrin) 81 mg PO DAILY [facility] Last Admin: 11/22/16 09:04 Dose: 81 mg Cilostazol (Pletal) 50 mg PO DAILY [facility] Last Admin: 11/22/16 09:08 Dose: 50 mg Hydrochlorothiazide (Hydrodiuril) 25 mg PO DAILY [facility] Last Admin: 11/22/16 09:11 Dose: 25 mg Hydromorphone HCl (Dilaudid) 0.5 mg IVP Q3H PRN PRN Reason: Pain, moderate (4-7) Last Admin: 11/22/16 11:20 Dose: 0.5 mg Lactated Ringer's (Lactated Ringer's) 1,000 mls @ 130 mls/hr IV .Q7H42M [facility] Last Admin: 11/22/16 19:32 Dose: Not Given Nitroglycerin/Dextrose (Nitroglycerin 50 Mg/250 Ml D5w) 50 mg in 250 mls @ 4.5 mls/hr IV .Q24H [facility]; 15 MCG/MIN PRN Reason: Protocol Last Admin: 11/21/16 20:45 Dose: 20 mcg/min, 6 mls/hr Insulin Aspart (Novolog) 0 unit SC ACHS [facility] PRN Reason: Protocol Last Admin: 11/22/16 21:27 Dose: Not Given Insulin Glargine (Lantus) 10 unit SC HS [facility] Losartan Potassium (Cozaar) 100 mg PO DAILY [facility] Last Admin: 11/22/16 09:03 Dose: 100 mg Metoprolol Succinate (Toprol Xl) 25 mg PO DAILY [facility] Last Admin: 11/22/16 09:04 Dose: 25 mg Ondansetron HCl (Zofran Inj) 4 mg IVP Q6H PRN PRN Reason: Nausea/Vomiting Last Admin: 11/21/16 19:45 Dose: 4 mg Pantoprazole Sodium (Protonix Ec Tab) 40 mg PO DAILY [facility] Last Admin: 11/22/16 09:04 Dose: 40 mg Pregabalin (Lyrica) 25 mg PO BID [facility] Last Admin: 11/22/16 18:00 Dose: Not Given - Labs Labs: 11/22/16 06:27 11/22/16 06:27 PT 12.3 SECONDS (9.7-12.2) H 11/20/16 17:55 INR 1.1 11/20/16 17:55 APTT 38 SECONDS (21-34) H 11/20/16 17:55
[2016-11-23] MEDS: Lactated Ringer's 1,000 ML IV SCH ×3 (05:11→13:35)
[2016-11-23] MEDS: (Novolog) Insulin Aspart, Recombinant 100 u/ml 10 ml vial SC SCH ×4 (08:00→22:00)
[2016-11-23 08:11] LABS: BASO # 0.1 K/uL (0.0-0.2); BASO % 0.7 % (0.0-2.0); EOS # 0.1 K/uL (0.0-0.7); EOS % 1.4 % (0.0-4.0); HEMATOCRIT 27.7 % (34.0-47.0); LYMPH # 1.9 K/uL (1.0-4.3); LYMPH % 18.9 % (20.0-40.0); MEAN CELL VOLUME 78.3 fL (81.0-99.0); MEAN CORPUSCULAR HEMOGLOBIN 25.5 pg (27.0-31.0); MEAN CORPUSCULAR HGB CONC 32.6 g/dL (33.0-37.0); MEAN PLATELET VOLUME 8.5 fL (7.2-11.7); MONO % 9.9 % (0.0-10.0); RED CELL DISTRIBUTION WIDTH 20.4 % (11.5-14.5); WHITE BLOOD COUNT 9.9 K/uL (4.8-10.8)
[2016-11-23 08:48] LABS: BLOOD UREA NITROGEN 14 mg/dL (7-17); CALCIUM 7.9 mg/dl (8.6-10.4); CARBON DIOXIDE 29 mmol/L (22-30); CHLORIDE 96 mmol/L (98-107); GFR AFRICAN-AMERICAN > 60; GLUCOSE,RANDOM 283 mg/dL (65-105); POTASSIUM 3.9 mmol/L (3.6-5.2); SODIUM 135 mmol/L (132-148)
[2016-11-23] MEDS: Cilostazol 50 mg Tab UD PO SCH (10:11)
[2016-11-23] MEDS: Pantoprazole 40 mg EC Tab PO SCH (10:12)
[2016-11-23] MEDS: Metoprolol Succinate 25 mg XL Tab PO SCH (10:12)
--- NOTE | 2016-11-23 14:53 | CP.PCM.PN ---
Subjective - Date & Time of Evaluation Date of Evaluation: 11/23/16 Time of Evaluation: 10:45 - Subjective Subjective: Patient seen and examined this morning, out of bed to chair. States she is feeling better, no complaints. Palpable DT/PT pulses bilateral. +Motor/Sensory function b/l. No acute events over night. Objective - Vital Signs/Intake and Output Vital Signs (last 24 hours): Temp Pulse Resp BP Pulse Ox 99.1 F 103 H 20 152/79 H 93 L 11/22/16 23:29 11/22/16 23:29 11/22/16 23:29 11/22/16 23:29 11/22/16 23:29 Intake and Output: 11/23/16 11/23/16 06:59 18:59 Intake Total 565 1440 Output Total 400 Balance 165 1440 - Medications Medications: Current Medications Aspirin (Ecotrin) 81 mg PO DAILY [facility] Last Admin: 11/23/16 10:12 Dose: 81 mg Cilostazol (Pletal) 50 mg PO DAILY [facility] Last Admin: 11/23/16 10:11 Dose: 50 mg Hydrochlorothiazide (Hydrodiuril) 25 mg PO DAILY [facility] Last Admin: 11/23/16 10:12 Dose: 25 mg Hydromorphone HCl (Dilaudid) 0.5 mg IVP Q3H PRN PRN Reason: Pain, moderate (4-7) Last Admin: 11/22/16 11:20 Dose: 0.5 mg Lactated Ringer's (Lactated Ringer's) 1,000 mls @ 130 mls/hr IV .Q7H42M [facility] Last Admin: 11/23/16 13:35 Dose: 130 mls/hr Nitroglycerin/Dextrose (Nitroglycerin 50 Mg/250 Ml D5w) 50 mg in 250 mls @ 4.5 mls/hr IV .Q24H [facility]; 15 MCG/MIN PRN Reason: Protocol Last Admin: 11/21/16 20:45 Dose: 20 mcg/min, 6 mls/hr Insulin Aspart (Novolog) 0 unit SC ACHS [facility] PRN Reason: Protocol Last Admin: 11/23/16 11:50 Dose: 4 unit Insulin Glargine (Lantus) 10 unit SC HS [facility] Losartan Potassium (Cozaar) 100 mg PO DAILY [facility] Last Admin: 11/23/16 10:12 Dose: 100 mg Metoprolol Succinate (Toprol Xl) 25 mg PO DAILY [facility] Last Admin: 11/23/16 10:12 Dose: 25 mg Ondansetron HCl (Zofran Inj) 4 mg IVP Q6H PRN PRN Reason: Nausea/Vomiting Last Admin: 11/21/16 19:45 Dose: 4 mg Pantoprazole Sodium (Protonix Ec Tab) 40 mg PO DAILY [facility] Last Admin: 11/23/16 10:12 Dose: 40 mg Pregabalin (Lyrica) 25 mg PO BID [facility] Last Admin: 11/23/16 10:11 Dose: 25 mg - Labs Labs: 11/23/16 07:58 11/23/16 07:58 PT 12.3 SECONDS (9.7-12.2) H 11/20/16 17:55 INR 1.1 11/20/16 17:55 APTT 38 SECONDS (21-34) H 11/20/16 17:55 - Constitutional Appears: No Acute Distress - Head Exam Head Exam: NORMOCEPHALIC - Eye Exam Eye Exam: Normal appearance - ENT Exam ENT Exam: Mucous Membranes Moist - Respiratory Exam Respiratory Exam: NORMAL BREATHING PATTERN - Cardiovascular Exam Cardiovascular Exam: +S1, +S2 - GI/Abdominal Exam GI & Abdominal Exam: Soft, Tenderness Additional comments: along incision site - Neurological Exam Neurological Exam: Alert, Awake, Oriented x3 - Psychiatric Exam Psychiatric exam: Normal Mood - Skin Skin Exam: Dry, Intact, Warm Assessment and Plan - Assessment and Plan (Free Text) Assessment: 76F s/p B/l common iliac stents, Left external iliac stent, Right femoral endarterectomy w/ patch, Open right femoral hernia repair POD2 -Incentive spirometer -OOB to chair -C/w Physical therapy -Monitor DP/PT pulses -Further recs per Dr. Taylor
[2016-11-23] MEDS: (Lantus) Insulin Glargine, Recombinant SC SCH (22:40)
[2016-11-24 01:29] VITALS: RESP 20
[2016-11-24 08:20] LABS: BASO # 0.1 K/uL (0.0-0.2); BASO % 0.6 % (0.0-2.0); EOS # 0.2 K/uL (0.0-0.7); EOS % 1.8 % (0.0-4.0); HEMATOCRIT 29.9 % (34.0-47.0); LYMPH # 1.6 K/uL (1.0-4.3); LYMPH % 16.2 % (20.0-40.0); MEAN CELL VOLUME 78.4 fL (81.0-99.0); MEAN CORPUSCULAR HEMOGLOBIN 25.5 pg (27.0-31.0); MEAN CORPUSCULAR HGB CONC 32.5 g/dL (33.0-37.0); MEAN PLATELET VOLUME 8.5 fL (7.2-11.7); MONO % 10.6 % (0.0-10.0); NRBC % 0.1 % (0.0-2.0); RED CELL DISTRIBUTION WIDTH 20.4 % (11.5-14.5); WHITE BLOOD COUNT 9.6 K/uL (4.8-10.8)
[2016-11-24 08:32] LABS: CHLORIDE 95 mmol/L (98-107)
[2016-11-24 08:33] LABS: POTASSIUM 3.2 mmol/L (3.6-5.2); SODIUM 134 mmol/L (132-148)
[2016-11-24 08:35] LABS: GFR AFRICAN-AMERICAN > 60
[2016-11-24 08:36] LABS: BLOOD UREA NITROGEN 9 mg/dL (7-17); CARBON DIOXIDE 27 mmol/L (22-30); GLUCOSE,RANDOM 240 mg/dL (65-105)
[2016-11-24] MEDS: (Novolog) Insulin Aspart, Recombinant 100 u/ml 10 ml vial SC SCH ×4 (08:57→21:36)
--- NOTE | 2016-11-24 08:58 | CP.PCM.PN ---
Subjective - Date & Time of Evaluation Date of Evaluation: 11/24/16 Time of Evaluation: 07:15 - Subjective Subjective: Patient seen and examined. No complaints. Tolerating diet. OOB to chair. +PT/DP pulses b/l. No acute events over night. Pressure dressing from right groin removed. Surgical incision appears c/d/i. Objective - Vital Signs/Intake and Output Vital Signs (last 24 hours): Temp Pulse Resp BP Pulse Ox 98.4 F 107 H 20 157/72 H 98 11/24/16 01:28 11/24/16 01:28 11/24/16 01:28 11/24/16 01:28 11/24/16 01:28 - Medications Medications: Current Medications Aspirin (Ecotrin) 81 mg PO DAILY [facility] Last Admin: 11/23/16 10:12 Dose: 81 mg Cilostazol (Pletal) 50 mg PO DAILY [facility] Last Admin: 11/23/16 10:11 Dose: 50 mg Hydrochlorothiazide (Hydrodiuril) 25 mg PO DAILY [facility] Last Admin: 11/23/16 10:12 Dose: 25 mg Hydromorphone HCl (Dilaudid) 0.5 mg IVP Q3H PRN PRN Reason: Pain, moderate (4-7) Last Admin: 11/22/16 11:20 Dose: 0.5 mg Nitroglycerin/Dextrose (Nitroglycerin 50 Mg/250 Ml D5w) 50 mg in 250 mls @ 4.5 mls/hr IV .Q24H [facility]; 15 MCG/MIN PRN Reason: Protocol Last Admin: 11/21/16 20:45 Dose: 20 mcg/min, 6 mls/hr Insulin Aspart (Novolog) 0 unit SC ACHS [facility] PRN Reason: Protocol Last Admin: 11/23/16 18:06 Dose: 4 unit Insulin Glargine (Lantus) 10 unit SC HS [facility] Last Admin: 11/23/16 22:40 Dose: 10 units Losartan Potassium (Cozaar) 100 mg PO DAILY [facility] Last Admin: 11/23/16 10:12 Dose: 100 mg Metoprolol Succinate (Toprol Xl) 25 mg PO DAILY [facility] Last Admin: 11/23/16 10:12 Dose: 25 mg Ondansetron HCl (Zofran Inj) 4 mg IVP Q6H PRN PRN Reason: Nausea/Vomiting Last Admin: 11/21/16 19:45 Dose: 4 mg Pantoprazole Sodium (Protonix Ec Tab) 40 mg PO DAILY [facility] Last Admin: 11/23/16 10:12 Dose: 40 mg Pregabalin (Lyrica) 25 mg PO BID [facility] Last Admin: 11/23/16 18:06 Dose: 25 mg - Labs Labs: 11/24/16 08:04 11/24/16 08:04 PT 12.3 SECONDS (9.7-12.2) H 11/20/16 17:55 INR 1.1 11/20/16 17:55 APTT 38 SECONDS (21-34) H 11/20/16 17:55 - Constitutional Appears: No Acute Distress - Head Exam Head Exam: NORMOCEPHALIC - Eye Exam Eye Exam: Normal appearance - ENT Exam ENT Exam: Mucous Membranes Moist - Respiratory Exam Respiratory Exam: NORMAL BREATHING PATTERN - Cardiovascular Exam Cardiovascular Exam: +S1, +S2 - GI/Abdominal Exam GI & Abdominal Exam: Soft - Neurological Exam Neurological Exam: Alert, Awake, Oriented x3 - Psychiatric Exam Psychiatric exam: Normal Mood - Skin Skin Exam: Dry, Intact, Warm Assessment and Plan - Assessment and Plan (Free Text) Assessment: 76F s/p B/l common iliac stents, Left external iliac stent, Right femoral endarterectomy w/ patch, Open right femoral hernia repair POD3 -OOB to chair -C/w Physical therapy -Monitor DP/PT pulses -DVT/GI ppx -Further recs per Dr. Claudia Dominguez PGY-2
[2016-11-24] MEDS: HYDROmorphone 0.5 mg/0.5 ml ISec IVP PRN ×2 (10:39→22:05)
[2016-11-24] MEDS: Pantoprazole 40 mg EC Tab PO SCH (10:41)
[2016-11-24] MEDS: Metoprolol Succinate 25 mg XL Tab PO SCH (10:41)
[2016-11-24] MEDS: Cilostazol 50 mg Tab UD PO SCH (10:42)
[2016-11-24] MEDS ORDERED: Potassium Chloride 20 mEq ER Tab PO ONE (18:00)
[2016-11-24] MEDS: (Lantus) Insulin Glargine, Recombinant SC SCH (22:00)
[2016-11-25 07:32] LABS: CHLORIDE 95 mmol/L (98-107)
[2016-11-25 07:33] LABS: POTASSIUM 3.8 mmol/L (3.6-5.2); SODIUM 132 mmol/L (132-148)
[2016-11-25 07:36] LABS: ALKALINE PHOSPHATASE 94 U/L (38-126); ALT/SGPT 32 U/L (9-52); AST/SGOT 18 U/L (14-36); BILIRUBIN,TOTAL 0.5 mg/dL (0.2-1.3); BLOOD UREA NITROGEN 15 mg/dL (7-17); CARBON DIOXIDE 29 mmol/L (22-30); GFR AFRICAN-AMERICAN > 60; GLUCOSE,RANDOM 292 mg/dL (65-105)
[2016-11-25 07:37] LABS: CALCIUM 8.6 mg/dl (8.6-10.4)
--- NOTE | 2016-11-25 07:58 | CP.PCM.PN ---
Subjective - Date & Time of Evaluation Date of Evaluation: 11/23/16 Time of Evaluation: 18:00 - Subjective Subjective: Patient seen and evaluated Denies chest pain and dypnea Comfortable Objective - Vital Signs/Intake and Output Vital Signs (last 24 hours): Temp Pulse Resp BP Pulse Ox 98 F 85 20 130/70 98 11/25/16 05:30 11/25/16 05:30 11/25/16 05:30 11/25/16 05:30 11/25/16 05:30 - Medications Medications: Current Medications Aspirin (Ecotrin) 81 mg PO DAILY [facility] Last Admin: 11/24/16 10:41 Dose: 81 mg Cilostazol (Pletal) 50 mg PO DAILY [facility] Last Admin: 11/24/16 10:42 Dose: 50 mg Heparin Sodium (Porcine) (Heparin) 5,000 units SC Q12 [facility] Last Admin: 11/24/16 22:01 Dose: 5,000 units Hydrochlorothiazide (Hydrodiuril) 25 mg PO DAILY [facility] Last Admin: 11/24/16 10:41 Dose: 25 mg Hydromorphone HCl (Dilaudid) 0.5 mg IVP Q3H PRN PRN Reason: Pain, moderate (4-7) Last Admin: 11/24/16 22:05 Dose: 0.5 mg Insulin Aspart (Novolog) 0 unit SC ACHS [facility] PRN Reason: Protocol Last Admin: 11/24/16 21:36 Dose: Not Given Insulin Glargine (Lantus) 10 unit SC HS [facility] Last Admin: 11/24/16 22:00 Dose: 10 units Losartan Potassium (Cozaar) 100 mg PO DAILY [facility] Last Admin: 11/24/16 10:41 Dose: 100 mg Metoprolol Succinate (Toprol Xl) 25 mg PO DAILY [facility] Last Admin: 11/24/16 10:41 Dose: 25 mg Ondansetron HCl (Zofran Inj) 4 mg IVP Q6H PRN PRN Reason: Nausea/Vomiting Last Admin: 11/21/16 19:45 Dose: 4 mg Pantoprazole Sodium (Protonix Ec Tab) 40 mg PO DAILY [facility] Last Admin: 11/24/16 10:41 Dose: 40 mg Pregabalin (Lyrica) 25 mg PO BID [facility] Last Admin: 11/24/16 18:07 Dose: 25 mg - Labs Labs: 11/24/16 08:04 11/25/16 07:04 PT 12.3 SECONDS (9.7-12.2) H 11/20/16 17:55 INR 1.1 11/20/16 17:55 APTT 38 SECONDS (21-34) H 11/20/16 17:55
--- NOTE | 2016-11-25 07:59 | CP.PCM.PN ---
Subjective - Date & Time of Evaluation Date of Evaluation: 11/24/16 Time of Evaluation: 17:40 - Subjective Subjective: Patient seen and evaluated No cardiac events Objective - Vital Signs/Intake and Output Vital Signs (last 24 hours): Temp Pulse Resp BP Pulse Ox 98 F 85 20 130/70 98 11/25/16 05:30 11/25/16 05:30 11/25/16 05:30 11/25/16 05:30 11/25/16 05:30 - Medications Medications: Current Medications Aspirin (Ecotrin) 81 mg PO DAILY [facility] Last Admin: 11/24/16 10:41 Dose: 81 mg Cilostazol (Pletal) 50 mg PO DAILY [facility] Last Admin: 11/24/16 10:42 Dose: 50 mg Heparin Sodium (Porcine) (Heparin) 5,000 units SC Q12 [facility] Last Admin: 11/24/16 22:01 Dose: 5,000 units Hydrochlorothiazide (Hydrodiuril) 25 mg PO DAILY [facility] Last Admin: 11/24/16 10:41 Dose: 25 mg Hydromorphone HCl (Dilaudid) 0.5 mg IVP Q3H PRN PRN Reason: Pain, moderate (4-7) Last Admin: 11/24/16 22:05 Dose: 0.5 mg Insulin Aspart (Novolog) 0 unit SC ACHS [facility] PRN Reason: Protocol Last Admin: 11/24/16 21:36 Dose: Not Given Insulin Glargine (Lantus) 10 unit SC HS [facility] Last Admin: 11/24/16 22:00 Dose: 10 units Losartan Potassium (Cozaar) 100 mg PO DAILY [facility] Last Admin: 11/24/16 10:41 Dose: 100 mg Metoprolol Succinate (Toprol Xl) 25 mg PO DAILY [facility] Last Admin: 11/24/16 10:41 Dose: 25 mg Ondansetron HCl (Zofran Inj) 4 mg IVP Q6H PRN PRN Reason: Nausea/Vomiting Last Admin: 11/21/16 19:45 Dose: 4 mg Pantoprazole Sodium (Protonix Ec Tab) 40 mg PO DAILY [facility] Last Admin: 11/24/16 10:41 Dose: 40 mg Pregabalin (Lyrica) 25 mg PO BID [facility] Last Admin: 11/24/16 18:07 Dose: 25 mg - Labs Labs: 11/24/16 08:04 11/25/16 07:04 PT 12.3 SECONDS (9.7-12.2) H 11/20/16 17:55 INR 1.1 11/20/16 17:55 APTT 38 SECONDS (21-34) H 11/20/16 17:55
[2016-11-25] MEDS: (Novolog) Insulin Aspart, Recombinant 100 u/ml 10 ml vial SC SCH ×4 (08:21→22:37)
[2016-11-25] MEDS: Metoprolol Succinate 25 mg XL Tab PO SCH (10:25)
[2016-11-25] MEDS: Pantoprazole 40 mg EC Tab PO SCH (10:26)
--- NOTE | 2016-11-25 10:59 | CP.PCM.PN ---
Subjective - Date & Time of Evaluation Date of Evaluation: 11/25/16 Time of Evaluation: 07:30 - Subjective Subjective: Pt S&E. No events over night. +DP/PT pulses. Reports she feels much better. Objective - Vital Signs/Intake and Output Vital Signs (last 24 hours): Temp Pulse Resp BP Pulse Ox 98 F 85 20 130/70 98 11/25/16 05:30 11/25/16 05:30 11/25/16 05:30 11/25/16 05:30 11/25/16 05:30 - Medications Medications: Current Medications Aspirin (Ecotrin) 81 mg PO DAILY [facility] Last Admin: 11/25/16 10:25 Dose: 81 mg Cilostazol (Pletal) 50 mg PO DAILY [facility] Last Admin: 11/24/16 10:42 Dose: 50 mg Heparin Sodium (Porcine) (Heparin) 5,000 units SC Q12 [facility] Last Admin: 11/25/16 10:25 Dose: 5,000 units Hydrochlorothiazide (Hydrodiuril) 25 mg PO DAILY [facility] Last Admin: 11/25/16 10:25 Dose: 25 mg Hydromorphone HCl (Dilaudid) 0.5 mg IVP Q3H PRN PRN Reason: Pain, moderate (4-7) Last Admin: 11/24/16 22:05 Dose: 0.5 mg Insulin Aspart (Novolog) 0 unit SC ACHS [facility] PRN Reason: Protocol Last Admin: 11/25/16 08:21 Dose: 4 unit Insulin Glargine (Lantus) 10 unit SC HS [facility] Last Admin: 11/24/16 22:00 Dose: 10 units Losartan Potassium (Cozaar) 100 mg PO DAILY [facility] Last Admin: 11/25/16 10:25 Dose: 100 mg Metoprolol Succinate (Toprol Xl) 25 mg PO DAILY [facility] Last Admin: 11/25/16 10:25 Dose: 25 mg Ondansetron HCl (Zofran Inj) 4 mg IVP Q6H PRN PRN Reason: Nausea/Vomiting Last Admin: 11/21/16 19:45 Dose: 4 mg Pantoprazole Sodium (Protonix Ec Tab) 40 mg PO DAILY [facility] Last Admin: 11/24/16 10:41 Dose: 40 mg Pregabalin (Lyrica) 25 mg PO BID [facility] Last Admin: 11/25/16 10:25 Dose: 25 mg - Labs Labs: 11/24/16 08:04 11/25/16 07:04 PT 12.3 SECONDS (9.7-12.2) H 11/20/16 17:55 INR 1.1 11/20/16 17:55 APTT 38 SECONDS (21-34) H 11/20/16 17:55 - Constitutional Appears: No Acute Distress - Head Exam Head Exam: NORMOCEPHALIC - Eye Exam Eye Exam: Normal appearance - ENT Exam ENT Exam: Mucous Membranes Moist - Respiratory Exam Respiratory Exam: NORMAL BREATHING PATTERN - Cardiovascular Exam Cardiovascular Exam: +S1, +S2 - GI/Abdominal Exam GI & Abdominal Exam: Soft. absent: Tenderness - Neurological Exam Neurological Exam: Alert, Awake, Oriented x3 - Psychiatric Exam Psychiatric exam: Normal Mood - Skin Skin Exam: Dry, Warm Assessment and Plan - Assessment and Plan (Free Text) Assessment: 76F s/p B/l common iliac stents, Left external iliac stent, Right femoral endarterectomy w/ patch, Open right femoral hernia repair POD4 -OOB to chair -Physical therapy -Monitor DP/PT pulses -DVT/GI ppx -D/w Dr. Td Dominguez PGY-2
[2016-11-25] MEDS: Cilostazol 50 mg Tab UD PO SCH (13:38)
[2016-11-25] MEDS: HYDROmorphone 0.5 mg/0.5 ml ISec IVP PRN (13:44)
--- NOTE | 2016-11-25 21:35 | CP.PCM.PN ---
Subjective - Date & Time of Evaluation Date of Evaluation: 11/25/16 Time of Evaluation: 07:30 - Subjective Subjective: Patient seen and evaluated Denies chest pain and dyspnea Objective - Vital Signs/Intake and Output Vital Signs (last 24 hours): Temp Pulse Resp BP Pulse Ox 99.8 F H 100 H 20 118/67 95 11/25/16 15:00 11/25/16 15:00 11/25/16 15:00 11/25/16 15:00 11/25/16 15:00 - Medications Medications: Current Medications Aspirin (Ecotrin) 81 mg PO DAILY [facility] Last Admin: 11/25/16 10:25 Dose: 81 mg Cilostazol (Pletal) 50 mg PO DAILY [facility] Last Admin: 11/25/16 13:38 Dose: 50 mg Heparin Sodium (Porcine) (Heparin) 5,000 units SC Q12 [facility] Last Admin: 11/25/16 10:25 Dose: 5,000 units Hydrochlorothiazide (Hydrodiuril) 25 mg PO DAILY [facility] Last Admin: 11/25/16 10:25 Dose: 25 mg Insulin Aspart (Novolog) 0 unit SC ACHS [facility] PRN Reason: Protocol Last Admin: 11/25/16 18:12 Dose: 8 unit Insulin Glargine (Lantus) 10 unit SC HS [facility] Last Admin: 11/24/16 22:00 Dose: 10 units Losartan Potassium (Cozaar) 100 mg PO DAILY [facility] Last Admin: 11/25/16 10:25 Dose: 100 mg Metoprolol Succinate (Toprol Xl) 25 mg PO DAILY [facility] Last Admin: 11/25/16 10:25 Dose: 25 mg Ondansetron HCl (Zofran Inj) 4 mg IVP Q6H PRN PRN Reason: Nausea/Vomiting Last Admin: 11/21/16 19:45 Dose: 4 mg Pantoprazole Sodium (Protonix Ec Tab) 40 mg PO DAILY [facility] Last Admin: 11/25/16 10:26 Dose: 40 mg Pregabalin (Lyrica) 25 mg PO BID [facility] Last Admin: 11/25/16 18:15 Dose: 25 mg - Labs Labs: 11/24/16 08:04 11/25/16 07:04 PT 12.3 SECONDS (9.7-12.2) H 11/20/16 17:55 INR 1.1 11/20/16 17:55 APTT 38 SECONDS (21-34) H 11/20/16 17:55 - Head Exam Head Exam: ATRAUMATIC - Eye Exam Eye Exam: EOMI, Normal appearance - ENT Exam ENT Exam: Mucous Membranes Moist - Respiratory Exam Respiratory Exam: Clear to Ausculation Bilateral, NORMAL BREATHING PATTERN - Cardiovascular Exam Cardiovascular Exam: REGULAR RHYTHM, +S1, +S2 - GI/Abdominal Exam GI & Abdominal Exam: Soft, Normal Bowel Sounds - Neurological Exam Neurological Exam: Alert, Oriented x3 - Psychiatric Exam Psychiatric exam: Normal Mood Assessment and Plan - Assessment and Plan (Free Text) Assessment: 76 F s/p b/l Iliac stents and ROAD [employer] endarterectomy H/O CAD s/p CABG Stable
[2016-11-25] MEDS: (Lantus) Insulin Glargine, Recombinant SC SCH (22:38)
[2016-11-26] MEDS: (Novolog) Insulin Aspart, Recombinant 100 u/ml 10 ml vial SC SCH ×4 (08:03→22:39)
--- NOTE | 2016-11-26 09:13 | CP.PCM.PN ---
Subjective - Date & Time of Evaluation Date of Evaluation: 11/26/16 Time of Evaluation: 07:15 - Subjective Subjective: Patient seen and examined this morning. Reports she is feeling well. Right groint dressing removed. Surgical inicision site is c/d/i. No erythema or purulent drainage noted. +DP/PT pulses b/l. Objective - Vital Signs/Intake and Output Vital Signs (last 24 hours): Temp Pulse Resp BP Pulse Ox 97.8 F 101 H 20 117/62 95 11/26/16 08:31 11/26/16 08:31 11/26/16 08:31 11/26/16 08:31 11/26/16 08:31 Intake and Output: 11/26/16 11/26/16 06:59 18:59 Intake Total 200 Balance 200 - Medications Medications: Current Medications Aspirin (Ecotrin) 81 mg PO DAILY [facility] Last Admin: 11/25/16 10:25 Dose: 81 mg Cilostazol (Pletal) 50 mg PO DAILY [facility] Last Admin: 11/25/16 13:38 Dose: 50 mg Heparin Sodium (Porcine) (Heparin) 5,000 units SC Q12 [facility] Last Admin: 11/25/16 22:38 Dose: 5,000 units Hydrochlorothiazide (Hydrodiuril) 25 mg PO DAILY [facility] Last Admin: 11/25/16 10:25 Dose: 25 mg Insulin Aspart (Novolog) 0 unit SC ACHS [facility] PRN Reason: Protocol Last Admin: 11/26/16 08:03 Dose: 6 unit Insulin Glargine (Lantus) 10 unit SC HS [facility] Last Admin: 11/25/16 22:38 Dose: 10 units Losartan Potassium (Cozaar) 100 mg PO DAILY [facility] Last Admin: 11/25/16 10:25 Dose: 100 mg Metoprolol Succinate (Toprol Xl) 25 mg PO DAILY [facility] Last Admin: 11/25/16 10:25 Dose: 25 mg Ondansetron HCl (Zofran Inj) 4 mg IVP Q6H PRN PRN Reason: Nausea/Vomiting Last Admin: 11/21/16 19:45 Dose: 4 mg Pantoprazole Sodium (Protonix Ec Tab) 40 mg PO DAILY [facility] Last Admin: 11/25/16 10:26 Dose: 40 mg Pregabalin (Lyrica) 25 mg PO BID [facility] Last Admin: 11/25/16 18:15 Dose: 25 mg - Labs Labs: 11/24/16 08:04 11/25/16 07:04 PT 12.3 SECONDS (9.7-12.2) H 11/20/16 17:55 INR 1.1 11/20/16 17:55 APTT 38 SECONDS (21-34) H 11/20/16 17:55 - Constitutional Appears: No Acute Distress - Head Exam Head Exam: NORMOCEPHALIC - Eye Exam Eye Exam: Normal appearance - ENT Exam ENT Exam: Mucous Membranes Moist - Respiratory Exam Respiratory Exam: NORMAL BREATHING PATTERN - Cardiovascular Exam Cardiovascular Exam: +S1, +S2 - GI/Abdominal Exam GI & Abdominal Exam: Soft - Extremities Exam Extremities Exam: absent: Calf Tenderness - Neurological Exam Neurological Exam: Alert, Awake, Oriented x3 - Psychiatric Exam Psychiatric exam: Normal Mood - Skin Skin Exam: Dry, Intact, Warm Assessment and Plan - Assessment and Plan (Free Text) Assessment: 76F s/p B/l common iliac stents, Left external iliac stent, Right femoral endarterectomy w/ patch, Open right femoral hernia repair POD5 -OOB to chair -Continue with Physical therapy -Monitor DP/PT pulses -DVT/GI ppx -D/w Dr. Td Dominguez PGY-2
[2016-11-26] MEDS: Metoprolol Succinate 25 mg XL Tab PO SCH (10:09)
[2016-11-26] MEDS: Pantoprazole 40 mg EC Tab PO SCH (10:09)
[2016-11-26] MEDS: Cilostazol 50 mg Tab UD PO SCH (12:09)
--- NOTE | 2016-11-26 18:52 | CP.PCM.PN ---
Subjective - Date & Time of Evaluation Date of Evaluation: 11/26/16 Time of Evaluation: 06:30 - Subjective Subjective: Patient seen and evaluated No cardiac events Comfortable Objective - Vital Signs/Intake and Output Vital Signs (last 24 hours): Temp Pulse Resp BP Pulse Ox 98.5 F 94 H 20 146/71 95 11/26/16 15:00 11/26/16 15:00 11/26/16 15:00 11/26/16 15:00 11/26/16 15:00 Intake and Output: 11/26/16 11/26/16 06:59 18:59 Intake Total 200 840 Balance 200 840 - Medications Medications: Current Medications Aspirin (Ecotrin) 81 mg PO DAILY [facility] Last Admin: 11/26/16 10:08 Dose: 81 mg Cilostazol (Pletal) 50 mg PO DAILY [facility] Last Admin: 11/26/16 12:09 Dose: 50 mg Heparin Sodium (Porcine) (Heparin) 5,000 units SC Q12 [facility] Last Admin: 11/26/16 10:08 Dose: 5,000 units Hydrochlorothiazide (Hydrodiuril) 25 mg PO DAILY [facility] Last Admin: 11/26/16 10:08 Dose: 25 mg Insulin Aspart (Novolog) 0 unit SC ACHS [facility] PRN Reason: Protocol Last Admin: 11/26/16 17:52 Dose: 8 unit Insulin Glargine (Lantus) 10 unit SC HS [facility] Last Admin: 11/25/16 22:38 Dose: 10 units Losartan Potassium (Cozaar) 100 mg PO DAILY [facility] Last Admin: 11/26/16 10:07 Dose: 100 mg Metoprolol Succinate (Toprol Xl) 25 mg PO DAILY [facility] Last Admin: 11/26/16 10:09 Dose: 25 mg Ondansetron HCl (Zofran Inj) 4 mg IVP Q6H PRN PRN Reason: Nausea/Vomiting Last Admin: 11/21/16 19:45 Dose: 4 mg Pantoprazole Sodium (Protonix Ec Tab) 40 mg PO DAILY [facility] Last Admin: 11/26/16 10:09 Dose: 40 mg Pregabalin (Lyrica) 25 mg PO BID [facility] Last Admin: 11/26/16 17:53 Dose: 25 mg - Labs Labs: 11/24/16 08:04 11/25/16 07:04 PT 12.3 SECONDS (9.7-12.2) H 11/20/16 17:55 INR 1.1 11/20/16 17:55 APTT 38 SECONDS (21-34) H 11/20/16 17:55 - Constitutional Appears: Well - Head Exam Head Exam: ATRAUMATIC, NORMAL INSPECTION - Eye Exam Eye Exam: EOMI, Normal appearance, PERRL Pupil Exam: NORMAL ACCOMODATION - ENT Exam ENT Exam: Mucous Membranes Moist - Neck Exam Neck Exam: Full ROM, Normal Inspection - Respiratory Exam Respiratory Exam: Clear to Ausculation Bilateral, NORMAL BREATHING PATTERN - Cardiovascular Exam Cardiovascular Exam: REGULAR RHYTHM, +S1, +S2 - GI/Abdominal Exam GI & Abdominal Exam: Soft, Normal Bowel Sounds - Extremities Exam Extremities Exam: Full ROM - Neurological Exam Neurological Exam: Alert, Awake, Oriented x3 - Psychiatric Exam Psychiatric exam: Normal Mood - Skin Skin Exam: Warm Assessment and Plan - Assessment and Plan (Free Text) Assessment: 76 F s/p B/L Iliac stents 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
[2016-11-26] MEDS: (Lantus) Insulin Glargine, Recombinant SC SCH (22:41)
[2016-11-27] MEDS: (Novolog) Insulin Aspart, Recombinant 100 u/ml 10 ml vial SC SCH ×2 (08:38→12:28)
--- NOTE | 2016-11-27 08:48 | CP.PCM.PN ---
Subjective - Date & Time of Evaluation Date of Evaluation: 11/27/16 Time of Evaluation: 07:15 - Subjective Subjective: Vascular Surgery- Dr. Taylor PT S&E at bedside this AM. No acute events overnight. Incision C/D/I. No drainage erythema or purulent noted. Denies F/C CP/SOB N/V/D Objective - Vital Signs/Intake and Output Vital Signs (last 24 hours): Temp Pulse Resp BP Pulse Ox 98.2 F 92 H 20 119/64 96 11/27/16 01:46 11/27/16 01:46 11/27/16 01:46 11/27/16 01:46 11/27/16 01:46 - Medications Medications: Current Medications Aspirin (Ecotrin) 81 mg PO DAILY [facility] Last Admin: 11/26/16 10:08 Dose: 81 mg Cilostazol (Pletal) 50 mg PO DAILY [facility] Last Admin: 11/26/16 12:09 Dose: 50 mg Heparin Sodium (Porcine) (Heparin) 5,000 units SC Q12 [facility] Last Admin: 11/26/16 22:39 Dose: 5,000 units Hydrochlorothiazide (Hydrodiuril) 25 mg PO DAILY [facility] Last Admin: 11/26/16 10:08 Dose: 25 mg Insulin Aspart (Novolog) 0 unit SC ACHS [facility] PRN Reason: Protocol Last Admin: 11/26/16 22:39 Dose: 4 unit Insulin Glargine (Lantus) 10 unit SC HS [facility] Last Admin: 11/26/16 22:41 Dose: 10 units Losartan Potassium (Cozaar) 100 mg PO DAILY [facility] Last Admin: 11/26/16 10:07 Dose: 100 mg Metoprolol Succinate (Toprol Xl) 25 mg PO DAILY [facility] Last Admin: 11/26/16 10:09 Dose: 25 mg Ondansetron HCl (Zofran Inj) 4 mg IVP Q6H PRN PRN Reason: Nausea/Vomiting Last Admin: 11/21/16 19:45 Dose: 4 mg Pantoprazole Sodium (Protonix Ec Tab) 40 mg PO DAILY [facility] Last Admin: 11/26/16 10:09 Dose: 40 mg Pregabalin (Lyrica) 25 mg PO BID [facility] Last Admin: 11/26/16 17:53 Dose: 25 mg - Labs Labs: 11/24/16 08:04 11/25/16 07:04 PT 12.3 SECONDS (9.7-12.2) H 11/20/16 17:55 INR 1.1 11/20/16 17:55 APTT 38 SECONDS (21-34) H 11/20/16 17:55 - Constitutional Appears: No Acute Distress - Eye Exam Eye Exam: EOMI - ENT Exam ENT Exam: Mucous Membranes Moist - Respiratory Exam Respiratory Exam: absent: Accessory Muscle Use, Rhonchi, Wheezes - Cardiovascular Exam Cardiovascular Exam: +S1, +S2 - GI/Abdominal Exam GI & Abdominal Exam: Soft. absent: Distended, Tenderness - Extremities Exam Additional comments: pulses palpable. +1 Left DP, +2 RLE Assessment and Plan - Assessment and Plan (Free Text) Assessment: 76F s/p B/l common iliac stents, Left external iliac stent, Right femoral endarterectomy w/ patch, Open right femoral hernia repair POD#6 Plan: - Monitor DP/PT pulses - C/W Physical Therapy - GI/DVT ppx - Pt is clinically stable and cleared for discharge from a surgical standpoint - further recs per Dr. Claudia Crow PGY1
[2016-11-27 09:26] VITALS: BP 138/74; PULSE 104; TEMP 97.5; O2SAT 95
[2016-11-27] MEDS: Cilostazol 50 mg Tab UD PO SCH (10:30)
[2016-11-27] MEDS: Metoprolol Succinate 25 mg XL Tab PO SCH (10:30)
[2016-11-27] MEDS: Pantoprazole 40 mg EC Tab PO SCH (10:30)
--- NOTE | 2016-11-27 12:38 | CP.PCM.PN ---
Subjective - Date & Time of Evaluation Date of Evaluation: 11/27/16 Time of Evaluation: 12:38 - Subjective Subjective: PT CLEARED FOR D/C HOME TODAY. SURGERY CLEARED FOR F/U OUTPATIENT. UI PROGRAMMER DISCUSSED W DR. DIAZ WHO ALSO CLEARED PT; TO CONTINUE HOME ASA, STATIN, AND METOPROLOL. FOR F/U WITH DR. ANGEL (PMD) IN OFFICE WITHIN 1 WEEK. ALL D/C INFORMATION DISCUSSED WITH PT AT LENGTH. FAMILY TO PICK HER UP. REFILL RX GIVEN FOR ALL HOME MEDS PT CANNOT RECALL WHICH MEDS SHE NEEDS REFILL ON. NO FURTHER ORDER. Objective - Vital Signs/Intake and Output Vital Signs (last 24 hours): Temp Pulse Resp BP Pulse Ox 97.5 F L 104 H 20 138/74 95 11/27/16 08:00 11/27/16 08:00 11/27/16 08:00 11/27/16 08:00 11/27/16 08:00 Intake and Output: 11/27/16 11/27/16 06:59 18:59 Intake Total 150 Balance 150 - Medications Medications: Current Medications Aspirin (Ecotrin) 81 mg PO DAILY [facility] Last Admin: 11/27/16 10:30 Dose: 81 mg Cilostazol (Pletal) 50 mg PO DAILY [facility] Last Admin: 11/27/16 10:30 Dose: 50 mg Hydrochlorothiazide (Hydrodiuril) 25 mg PO DAILY [facility] Last Admin: 11/27/16 10:30 Dose: 25 mg Insulin Aspart (Novolog) 0 unit SC ACHS [facility] PRN Reason: Protocol Last Admin: 11/27/16 12:28 Dose: 8 unit Insulin Glargine (Lantus) 10 unit SC HS [facility] Last Admin: 11/26/16 22:41 Dose: 10 units Losartan Potassium (Cozaar) 100 mg PO DAILY [facility] Last Admin: 11/27/16 10:30 Dose: 100 mg Metoprolol Succinate (Toprol Xl) 25 mg PO DAILY [facility] Last Admin: 11/27/16 10:30 Dose: 25 mg Ondansetron HCl (Zofran Inj) 4 mg IVP Q6H PRN PRN Reason: Nausea/Vomiting Last Admin: 11/21/16 19:45 Dose: 4 mg Pantoprazole Sodium (Protonix Ec Tab) 40 mg PO DAILY [facility] Last Admin: 11/27/16 10:30 Dose: 40 mg Pregabalin (Lyrica) 25 mg PO BID [facility] Last Admin: 11/27/16 10:30 Dose: 25 mg - Labs Labs: 11/24/16 08:04 11/25/16 07:04 PT 12.3 SECONDS (9.7-12.2) H 11/20/16 17:55 INR 1.1 11/20/16 17:55 APTT 38 SECONDS (21-34) H 11/20/16 17:55
--- NOTE | 2016-11-27 22:38 | CP.PCM.PN ---
Subjective - Date & Time of Evaluation Date of Evaluation: 11/27/16 Time of Evaluation: 08:05 - Subjective Subjective: Patient seen and evaluated Denies chest pain and dyspnea D/C home today F/U with my office in 2 weeks Objective - Vital Signs/Intake and Output Vital Signs (last 24 hours): Temp Pulse Resp BP Pulse Ox 97.5 F L 104 H 20 138/74 95 11/27/16 08:00 11/27/16 08:00 11/27/16 08:00 11/27/16 08:00 11/27/16 08:00 Intake and Output: 11/27/16 11/28/16 18:59 06:59 Intake Total 500 Balance 500 - Labs Labs: 11/24/16 08:04 11/25/16 07:04 PT 12.3 SECONDS (9.7-12.2) H 11/20/16 17:55 INR 1.1 11/20/16 17:55 APTT 38 SECONDS (21-34) H 11/20/16 17:55
--- NOTE | 2016-12-07 15:58 | CP.PCM.PN ---
Subjective - Date & Time of Evaluation Date of Evaluation: 11/23/16 Time of Evaluation: 20:00 - Subjective Subjective: patient feeling better. leg pain is less. No other active symptoms. Eating well. 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 status post surgery. improving vascular supply continue current treatment Objective - Vital Signs/Intake and Output Vital Signs (last 24 hours): Temp Pulse Resp BP Pulse Ox 97.5 F L 104 H 20 138/74 95 11/27/16 08:00 11/27/16 08:00 11/27/16 08:00 11/27/16 08:00 11/28/16 14:41 - Labs Labs: 11/24/16 08:04 11/25/16 07:04 PT 12.3 SECONDS (9.7-12.2) H 11/20/16 17:55 INR 1.1 11/20/16 17:55 APTT 38 SECONDS (21-34) H 11/20/16 17:55
--- NOTE | 2016-12-07 16:00 | CP.PCM.PN ---
Subjective - Date & Time of Evaluation Date of Evaluation: 11/24/16 Time of Evaluation: 15:59 - Subjective Subjective: Patient examined. No complaints. Tolerating the diet. Out of bed to chair. Palpable pulses noted. Vital signs stable. Pulse 107. Temperature 98.4. Blood pressure 157/72, saturation 90%. Clinically stable. Medications reviewed. On aspirin, cilostazol, hydrochlorothiazide, insulin, losartan, metoprolol, pantoprazole, Lyrica. Stable otherwise. Patient with the heart disease, CAD, PVD, status post bypass surgery. Currently doing well. Continue the current treatment Objective - Vital Signs/Intake and Output Vital Signs (last 24 hours): Temp Pulse Resp BP Pulse Ox 97.5 F L 104 H 20 138/74 95 11/27/16 08:00 11/27/16 08:00 11/27/16 08:00 11/27/16 08:00 11/28/16 14:41 - Labs Labs: 11/24/16 08:04 11/25/16 07:04 PT 12.3 SECONDS (9.7-12.2) H 11/20/16 17:55 INR 1.1 11/20/16 17:55 APTT 38 SECONDS (21-34) H 11/20/16 17:55
--- NOTE | 2016-12-07 16:01 | CP.PCM.PN ---
Subjective - Date & Time of Evaluation Date of Evaluation: 11/25/16 Time of Evaluation: 16:00 - Subjective Subjective: Denies any chest pain. Patient seen and examined. Vital signs is stable. Low-grade fever noted. Heart rate is 100/m. Blood pressure 118/67, saturation is 95%. 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 Labs reviewed. Assessment and admission: 76 female, history of smoking, PVD, CAD. Diabetes, hypertension. Status post bypass. Currently doing well. Continue PT Objective - Vital Signs/Intake and Output Vital Signs (last 24 hours): Temp Pulse Resp BP Pulse Ox 97.5 F L 104 H 20 138/74 95 11/27/16 08:00 11/27/16 08:00 11/27/16 08:00 11/27/16 08:00 11/28/16 14:41 - Labs Labs: 11/24/16 08:04 11/25/16 07:04 PT 12.3 SECONDS (9.7-12.2) H 11/20/16 17:55 INR 1.1 11/20/16 17:55 APTT 38 SECONDS (21-34) H 11/20/16 17:55
--- NOTE | 2016-12-07 16:02 | CP.PCM.PN ---
Subjective - Date & Time of Evaluation Date of Evaluation: 11/26/16 Time of Evaluation: 16:01 - Subjective Subjective: Patient seen, examined. Feeling much better. The dressing was removed. Surgical site is clean. No discharge noted. Peripheral pulses is palpable. Vital signs stable. Clinical stable. 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 Labs reviewed. Assessment and admission: 76 female, history of smoking, PVD, CAD. Diabetes, hypertension. Status post bypass. Currently doing well. Continue PT Objective - Vital Signs/Intake and Output Vital Signs (last 24 hours): Temp Pulse Resp BP Pulse Ox 97.5 F L 104 H 20 138/74 95 11/27/16 08:00 11/27/16 08:00 11/27/16 08:00 11/27/16 08:00 11/28/16 14:41 - Labs Labs: 11/24/16 08:04 11/25/16 07:04 PT 12.3 SECONDS (9.7-12.2) H 11/20/16 17:55 INR 1.1 11/20/16 17:55 APTT 38 SECONDS (21-34) H 11/20/16 17:55
--- NOTE | 2016-12-07 16:03 | CP.PCM.DIS ---
Provider - Provider Date of Admission: 11/20/16 17:38 Attending physician: Carter Tan MD Time Spent in preparation of Discharge (in minutes): 45 Hospital Course - Lab Results Lab Results: Micro Results 11/22/16 21:19 Nose MRSA Culture - Final MRSA NOT DETECTED 11/21/16 20:37 Nose MRSA Culture (Admit) - Final MRSA NOT DETECTED Most Recent Lab Values WBC 9.6 K/uL (4.8-10.8) 11/24/16 08:04 RBC 3.81 Mil/uL (3.80-5.20) 11/24/16 08:04 Hgb 9.7 g/dL (11.0-16.0) L 11/24/16 08:04 Hct 29.9 % (34.0-47.0) L 11/24/16 08:04 MCV 78.4 fL (81.0-99.0) L 11/24/16 08:04 MCH 25.5 pg (27.0-31.0) L 11/24/16 08:04 MCHC 32.5 g/dL (33.0-37.0) L 11/24/16 08:04 RDW 20.4 % (11.5-14.5) H 11/24/16 08:04 Plt Count 207 K/uL (130-400) 11/24/16 08:04 MPV 8.5 fL (7.2-11.7) 11/24/16 08:04 Neut % (Auto) 70.8 % (50.0-75.0) 11/24/16 08:04 Lymph % (Auto) 16.2 % (20.0-40.0) L 11/24/16 08:04 [place] % (Auto) 10.6 % (0.0-10.0) H 11/24/16 08:04 Eos % (Auto) 1.8 % (0.0-4.0) 11/24/16 08:04 Baso % (Auto) 0.6 % (0.0-2.0) 11/24/16 08:04 Neut # 6.8 K/uL (1.8-7.0) 11/24/16 08:04 Lymph # 1.6 K/uL (1.0-4.3) 11/24/16 08:04 [place] # 1.0 K/uL (0.0-0.8) H 11/24/16 08:04 Eos # 0.2 K/uL (0.0-0.7) 11/24/16 08:04 Baso # 0.1 K/uL (0.0-0.2) 11/24/16 08:04 Neutrophils % (Manual) 83 % (50-75) H 11/22/16 06:27 Band Neutrophils % 1 % (0-2) 11/22/16 06:27 Lymphocytes % (Manual) 7 % (20-40) L 11/22/16 06:27 Monocytes % (Manual) 9 % (0-10) 11/22/16 06:27 Platelet Estimate Normal (NORMAL) 11/22/16 06:27 Hypochromasia (manual) Slight 11/22/16 06:27 Poikilocytosis (manual Slight 11/22/16 06:27 Anisocytosis (manual) Slight 11/22/16 06:27 Ovalocytes Slight 11/22/16 06:27 Serena Cells Slight 11/22/16 06:27 PT 12.3 SECONDS (9.7-12.2) H 11/20/16 17:55 INR 1.1 11/20/16 17:55 APTT 38 SECONDS (21-34) H 11/20/16 17:55 Puncture Site Rra 11/21/16 16:40 pCO2 32 mm/Hg (35-45) L 11/21/16 16:40 pO2 374 mm/Hg (80-100) H 11/21/16 16:40 HCO3 26.9 mmol/L (21-28) 11/21/16 16:40 ABG pH 7.50 (7.35-7.45) H 11/21/16 16:40 ABG Total CO2 26.0 mmol/L (22-28) 11/21/16 16:40 ABG O2 Saturation 99.0 % (95-98) H 11/21/16 16:40 ABG Base Excess 2.4 mmol/L (-2.0-3.0) 11/21/16 16:40 Jam Test Na 11/21/16 16:40 ABG Potassium 4.0 mmol/L (3.6-5.2) 11/21/16 16:40 A-a O2 Difference 299.0 mm/Hg 11/21/16 16:40 Respiratory Index 0.8 11/21/16 16:40 Sodium 138.0 mmol/l (132-148) 11/21/16 16:40 Chloride 112.0 mmol/L (98-107) H 11/21/16 16:40 Glucose 301 mg/dl (65-105) H 11/21/16 16:40 Lactate 2.1 mmol/L (0.7-2.1) 11/21/16 16:40 FiO2 100.0 % 11/21/16 16:40 Sodium 132 mmol/L (132-148) 11/25/16 07:04 Potassium 3.8 mmol/L (3.6-5.2) 11/25/16 07:04 Chloride 95 mmol/L (98-107) L 11/25/16 07:04 Carbon Dioxide 29 mmol/L (22-30) 11/25/16 07:04 Anion Gap 12 (10-20) 11/25/16 07:04 BUN 15 mg/dL (7-17) 11/25/16 07:04 Creatinine 0.9 MG/DL (0.7-1.2) 11/25/16 07:04 Est GFR ( Amer) > 60 11/25/16 07:04 Est GFR (Non-Af Amer) > 60 11/25/16 07:04 POC Glucose (mg/dL) 383 mg/dL (65-110) H 11/27/16 11:28 Random Glucose 292 mg/dL (65-105) H 11/25/16 07:04 Calcium 8.6 mg/dl (8.6-10.4) 11/25/16 07:04 Total Bilirubin 0.5 mg/dL (0.2-1.3) 11/25/16 07:04 AST 18 U/L (14-36) 11/25/16 07:04 ALT 32 U/L (9-52) 11/25/16 07:04 Alkaline Phosphatase 94 U/L (38-126) 11/25/16 07:04 Total Protein 6.0 g/dL (6.3-8.3) L 11/25/16 07:04 Albumin 3.0 g/dL (3.5-5.0) L D 11/25/16 07:04 Globulin 3.0 gm/dL (2.2-3.9) 11/25/16 07:04 Albumin/Globulin Ratio 1.0 (1.0-2.1) 11/25/16 07:04 Arterial Blood Potassium 4.0 mmol/L (3.6-5.2) 11/21/16 16:40 Blood Type A POSITIVE 11/20/16 19:06 Blood Type Confirm A POSITIVE 11/20/16 19:06 Antibody Screen Negative 11/20/16 19:06 - Hospital Course Hospital Course: Chief complaint: Leg pain History present illness: 76-year-old female with history of CAD, status post a coronary artery bypass grafting, hypertension, hyperlipidemia, history of smoking, peripheral vascular disease admitted to the hospital because of the ongoing pain in the legs. Patient also has a significant atherosclerotic disease of the abdominal aorta. Patient was having increasing pain especially on the right leg. No ulcers noted. Patient also has a history of diabetes. Poor appetite noted. She is also complaining of bilateral leg pain, feeling like a burning sensation in the legs. She also having some difficulty in moving her legs. Unable to walk. Right is more than the left. She also has a some frequency of urine, flank pain, occasionally noted. She does not have any chest pain or shortness of breath Past medical history: CAD, CABG 3, hypertension, hyperlipidemia, smoking in the past the PVD Surgical history: CABG 3 in the past. Allergy: Penicillin Personal history: History a smoker in the past, nonalcoholic. Family history noncontributory Review of system: No headache, bilateral leg pain, no chest pain, denies any abdominal symptoms. No urinary symptoms Vital signs reviewed No neck vein distention noted Chest good air entry bilaterally, no wheezing or rales noted CVS regular heart sound, no murmur noted Abdomen soft, nontender. 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 Patient tolerated the procedure Labs reviewed EKG normal Assessment and recommendation: 76-year-old female with history of diabetes hypertension CAD, CABG 3, peripheral vascular disease. Now admitted with bilateral peripheral vascular disease involving the iliac artery. Status post a surgical intervention. Postoperatively being managed. Close monitoring. Antiplatelets heparin. We'll follow the patient Postoperatively patient was being managed. Patient slowly improved in condition. Blood sugar is stable. Patient blood cell patient is improving. Ablating pain. Out of bed to chair. Clinical stable. She'll be discharged home. She will continue her home medications. Antiplatelets medications reviewed. Followup with the surgeon as well as PMD. Discharge Exam - Head Exam Head Exam: ATRAUMATIC, NORMAL INSPECTION Discharge Plan - Discharge Medications Prescriptions: Aspirin [Ecotrin] 81 mg PO DAILY #30 Sitagliptin Phos/Metformin HCl [Janumet 50-1,000 mg Tablet] 1 tab PO DAILY #30 Atorvastatin [Lipitor] 20 mg PO HS #30 Losartan/Hydrochlorothiazide [Losartan-Hctz 100-25 mg Tab] 1 tab PO DAILY #30 Pregabalin [Lyrica] 25 mg PO BID #60 Metoprolol Succinate 25 mg PO DAILY #30 Esomeprazole Magnesium [Nexium] 40 mg PO DAILY #30 Cilostazol [Pletal] 50 mg PO DAILY #30 - Follow Up Plan Condition: GUARDED Disposition: HOME/ ROUTINE Instructions: Metoprolol (By mouth), Hydrochlorothiazide (By mouth), Aspirin ( By mouth), Atorvastatin (By mouth), Losartan/Hydrochlorothiazide (By mouth), Cilostazol (By mouth), Esomeprazole (By mouth), Pregabalin (By mouth), Sitagliptin/Metformin (By mouth), Peripheral Artery Disease (DC) Additional Instructions: CALL TO MAKE A FOLLOW UP APPOINTMENT WITH DR. ANGEL IN THE OFFICE NEXT WEEK. FOLLOW UP WITH DR. MCCLELLAND (SURGEON) IN THE OFFICE IN 2 WEEKS. FOLLOW UP WITH DR. SOW (CARDIOLOGY) IN THE OFFICE IN 2 WEEKS. TAKE ALL MEDICATIONS USUAL. FOR ANY OTHER QUESTIONS, CONTACT DR. TAN OR DR. ANGEL. Referrals: Gagan Sow MD [Staff Provider] - Jb Angel [Staff Provider] - Elver Mcclelland Jr., MD [Staff Provider] - Carter Tan MD [Staff Provider] -
== END 2016-11-27 13:28 | disposition home or self-care (01) | DRG 253 ==
LOC: C.ER 16:53 → C.9E 17:38 → C.3T 21:45 → C.9I 11-21 20:27 → C.5T 11-23 00:24 → C.3T 11-25 05:30
PROVIDERS: ADMIT Internal Medicine; ATTEND Internal Medicine
PROC: 047J0DZ Dilation of Left External Iliac Artery with Intraluminal Device, Open Approach (ICD-10-PCS; 2016-11-21)
PROC: 04CK0ZZ Extirpation of Matter from Right Femoral Artery, Open Approach (ICD-10-PCS; 2016-11-21)
PROC: 04UK0JZ Supplement Right Femoral Artery with Synthetic Substitute, Open Approach (ICD-10-PCS; 2016-11-21)
PROC: 0YQ70ZZ Repair Right Femoral Region, Open Approach (ICD-10-PCS; 2016-11-21)
PROC: 047D0DZ Dilation of Left Common Iliac Artery with Intraluminal Device, Open Approach (ICD-10-PCS; principal; 2016-11-21 12:00)
PROC: 047C0DZ Dilation of Right Common Iliac Artery with Intraluminal Device, Open Approach (ICD-10-PCS; 2016-11-21 12:00)
DX: E11.51 Type 2 diabetes mellitus with diabetic peripheral angiopathy without gangrene (principal); I70.92 Chronic total occlusion of artery of the extremities; I70.223 Atherosclerosis of native arteries of extremities with rest pain, bilateral legs; I10 Essential (primary) hypertension; E78.00 Pure hypercholesterolemia, unspecified; I25.10 Atherosclerotic heart disease of native coronary artery without angina pectoris; I70.8 Atherosclerosis of other arteries; K41.90 Unilateral femoral hernia, without obstruction or gangrene, not specified as recurrent; I70.0 Atherosclerosis of aorta; Z79.82 Long term (current) use of aspirin; Z95.1 Presence of aortocoronary bypass graft; Z87.891 Personal history of nicotine dependence; R20.8 Other disturbances of skin sensation; Z79.4 Long term (current) use of insulin

== ENCOUNTER 2018-07-24 09:58 | Outpatient (CLI) | payer MEDICARE | END 2018-07-24 09:59 | disposition home or self-care (01) | LOC: C.RADIC 09:58 | DX: J90 Pleural effusion, not elsewhere classified (principal); J18.9 Pneumonia, unspecified organism ==